=== PATIENT | female | born 1995 ===

== ENCOUNTER → 2020-08-09 12:13 | Outpatient (BNVA) | payer OTHER, SELFPAY | PROVIDERS: Visit Provider Obstetrics & Gynecology | DX: Z30.09 Encounter for other general counseling and advice on contraception (principal) | CPT/HCPCS: 99202 ==

== ENCOUNTER 2020-10-23 10:20 | Outpatient (REF) | payer OTHER, SELFPAY ==
[2020-10-24 00:52] LABS: CT PCR NOT DETECTED (Not Detect.); NG PCR NOT DETECTED (Not Detect.)
== END 2020-10-23 10:21 | disposition home or self-care (01) ==
LOC: HO.LAB 10:20
PROVIDERS: Visit Provider Advanced Practice Midwife
DX: Z30.430 Encounter for insertion of intrauterine contraceptive device (principal); Z20.2 Contact with and (suspected) exposure to infections with a predominantly sexual mode of transmission
CPT/HCPCS: 58300; 81025; 87491; 87591

== ENCOUNTER 2020-11-23 10:48 | Outpatient (REF) | payer OTHER, SELFPAY | END 2020-11-23 10:49 | disposition home or self-care (01) | LOC: HO.LAB 10:48 | PROVIDERS: Visit Provider Advanced Practice Midwife | DX: Z30.431 Encounter for routine checking of intrauterine contraceptive device (principal); R31.9 Hematuria, unspecified | CPT/HCPCS: 87086; 87147; 99212 ==

== ENCOUNTER 2021-01-31 13:27 | Outpatient (REF) | payer OTHER, SELFPAY ==
[2021-01-31 15:13] LABS: Hematocrit 41.3 % (37.0-47.0); Hemoglobin 14.2 g/dl (12.0-16.0); Mean Corpuscular HGB Conc 34.4 g/dl (31.0-35.0); Mean Corpuscular Hemoglobin 27.8 pg (27.0-33.0); Mean Corpuscular Volume 80.8 fL (80.0-98.0); Mean Platelet Volume 10.7 fL (9.4-12.3); Platelet Count 341 X10*3/uL (160-400); Red Blood Count 5.11 X10*6/uL (4.20-5.50); Red Cell Distribution Width 12.9 % (11.0-16.0); White Blood Count 9.7 X10*3/uL (4.8-10.8)
[2021-02-01 10:56] LABS: BV Int Neg Control Negative (Negative); BV Int Pos Control Positive (Positive)
== END 2021-01-31 13:28 | disposition home or self-care (01) ==
LOC: HO.LAB 13:27
PROVIDERS: Visit Provider Advanced Practice Midwife
DX: Z01.419 Encounter for gynecological examination (general) (routine) without abnormal findings (principal); N93.9 Abnormal uterine and vaginal bleeding, unspecified; N92.0 Excessive and frequent menstruation with regular cycle
CPT/HCPCS: 36415; 81025; 85027; 87480; 87510; 87660; 99212

== ENCOUNTER 2021-02-12 14:06 | Outpatient (REF) | payer OTHER, SELFPAY ==
--- NOTE | ~2021-02-12 | US_ITS ---
EXAMINATION: US PELVIS CLINICAL INFORMATION: Z30.431 - checking of IUD, bleeding with paraguard. Age 25. LMP 2 weeks ago. COMPARISON: None TECHNIQUE: Ultrasound of the pelvis is performed using both transabdominal and transvaginal transducers along with Doppler. Transvaginal imaging is performed due to inadequate visualization transabdominally. FINDINGS: Uterus: The uterus is anteverted and measures 8.2 x 3.7 x 5.8 cm. Volume 92 mL. The double wall endometrial thickness is 13 mm. The uterus is smooth in contour. There is an IUD in expected position. No visible fibroid. Adnexa: Both ovaries are visualized. There is incidental dominant follicle on left measuring 1.9 x 1.6 cm. There is no adnexal mass. There is normal color flow to the adnexa. No torsion. No ascites. Right ovary measures 3.2 x 1.5 x 1.5 cm. Left ovary measures 4.3 x 2.0 x 2.2 cm. US/US pelvic and transvaginal IMPRESSION: 1. IUD in position. Double wall endometrial thickness within normal, 1.3 cm. 2. Incidental left ovarian dominant follicle. No adnexal mass or pelvic ascites.
== END 2021-02-12 14:07 | disposition home or self-care (01) ==
LOC: HO.US 14:06
PROVIDERS: Visit Provider Advanced Practice Midwife
DX: Z30.431 Encounter for routine checking of intrauterine contraceptive device (principal); N92.0 Excessive and frequent menstruation with regular cycle
CPT/HCPCS: 76830; 76856

== ENCOUNTER → 2021-02-26 11:34 | Outpatient (BNVA) | payer OTHER, SELFPAY | PROVIDERS: Visit Provider Advanced Practice Midwife ==

== ENCOUNTER 2022-03-07 15:38 | Outpatient (REF) | payer OTHER, SELFPAY ==
[2022-03-07 18:42] LABS: CT PCR NOT DETECTED (Not Detect.); NG PCR NOT DETECTED (Not Detect.)
[2022-03-08 12:29] LABS: BV Int Neg Control Negative (Negative); BV Int Pos Control Positive (Positive)
== END 2022-03-07 15:39 | disposition home or self-care (01) ==
LOC: HO.LNP 15:38
PROVIDERS: Visit Provider Advanced Practice Midwife
DX: Z01.419 Encounter for gynecological examination (general) (routine) without abnormal findings (principal); Z11.3 Encounter for screening for infections with a predominantly sexual mode of transmission; R31.9 Hematuria, unspecified
CPT/HCPCS: 81003; 87086; 87480; 87491; 87510; 87591; 87660

== ENCOUNTER 2022-07-24 13:44 | Outpatient (REF) | payer OTHER, SELFPAY ==
[2022-07-25 02:54] LABS: CT PCR NOT DETECTED (Not Detect.); NG PCR NOT DETECTED (Not Detect.)
[2022-07-25 10:55] LABS: BV Int Neg Control Negative (Negative); BV Int Pos Control Positive (Positive)
== END 2022-07-24 13:45 | disposition home or self-care (01) ==
LOC: HO.LAB 13:44
PROVIDERS: Visit Provider Advanced Practice Midwife
DX: R10.2 Pelvic and perineal pain (principal); N92.6 Irregular menstruation, unspecified; Z20.2 Contact with and (suspected) exposure to infections with a predominantly sexual mode of transmission
CPT/HCPCS: 0353U; 81025; 87480; 87510; 87660; 99212

== ENCOUNTER 2022-07-24 14:05 | Outpatient (REF) | payer OTHER, SELFPAY | END 2022-07-24 14:06 | disposition home or self-care (01) | LOC: HO.LNP 14:05 | PROVIDERS: Visit Provider Advanced Practice Midwife | DX: Z13.89 Encounter for screening for other disorder (principal) ==

== ENCOUNTER 2023-04-25 10:24 | Outpatient (AMB) | payer OTHER, SELFPAY ==
--- NOTE | 2023-04-25 10:47 | MHC.OFFVIS ---
Intake Vital Signs 04/25/23 10:49 Height 5 ft 3 in Weight 171 lb 15.369 oz BMI 30.5 BP 116/64 Intake Visit Reasons: vag pressure/30 mins Associate Veterinarian Required: Yes Associate Veterinarian Language: Fur Blowing Machine Operator Name: Aishwarya COULTER Information Interpreted: non-clinical & clinical Manager Statistical Programming: Manager Statistical Programming Present (Aishwarya COULTER) Accompanied by: Self / Same As Patient Allergies No Known Allergies Allergy (Verified 04/25/23 10:50) Is last menstrual period known: Yes Last menstrual period: 04/02/23 HPI HPI Comments History of Present Illness Details Patient is here today with complaints of lower pelvic pain reports it is 10/10 on the pain scale. She was previously seen at [facility] last and then returned to the hospital because her pain was still persistent. Initially she was told she had a UTI kidney infection and then when she returned she was told she did not. She reports they did not exam did tell her whether her IUD was placement was correct. She reports a fever on Friday. She is already seen her primary care who advised her to be seen here. Records are not here from [facility] we will call during her visit see if we can get them sent over immediately. She reports a increase in her vaginal discharge with an odor. [facility] Surgical History History of placement of ear tubes Social History Alcohol intake: never Patient Tobacco Use Status: Never used Tobacco Gender identity: Female Female Reproductive History Menstrual Age of Menarche: 13 Date of last menstrual period: 04/02/23 Review of Systems Const All systems reviewed & are unremarkable except as noted in HPI and below Physical Exam Vital Signs: Last Vital Signs BP 116/64 04/25/23 10:49 BMI result Body Mass Index 30.5 Const General: cooperative, healthy appearing and no acute distress Orientation/consciousness: patient oriented x3 GI Inspection: Yes normal to inspection Palpation (GI): Soft to palpation and Other GI palpation findings present (Nontender) Rectal Exam - Female: visual inspection normal General: Yes bladder normal to palpation External Female Exam: normal appearance of the urethra Speculum Exam - Vagina: normal appearance of the vagina, normal palpation and abnormal vaginal discharge Speculum Exam - Cervix: normal appearance of the cervix, normal palpation, Abnormal cervical discharge present (Mucopurulent discharge) and Other cervical findings present (Normal IUD strings) Bimanual exam- vagina & uterus: normal bimanual exam, normal palpation, uterine size normal, bladder normal to palpation, normal palpation, uterine shape normal and Uterine tenderness Bimanual Exam- Adnexa, other: normal adnexae Neuro General: patient oriented x3 Office Meds ceftriaxone 500 mg solution for injection Performing Provider: Della Yu CNM Performing Location: [facility] Administered by: Marisol Gomez on 04/25/23 12:10 Dose Route Admin Location Dispensed Lot Number Expiration Date [facility] [place] Deployment Technician 500 mg IM RGM 500 mg [id number] 03/23/25 8740-1141-07 [employer] Results AMB Test Urine AMB Test Urine Negative Last Edit by Aishwarya Montenegro CMA on 04/25/23 11:23 AMB Urinalysis Dipstick UR Leukocytes Negative Last Edit by Aishwarya Montenegro CMA on 04/25/23 11:24 UR Nitrite Negative Last Edit by Aishwarya Montenegro CMA on 04/25/23 11:24 UR Urobilinogen Normal Last Edit by Aishwarya Montenegro CMA on 04/25/23 11:24 UR Protein Negative Last Edit by Aishwarya Montenegro CMA on 04/25/23 11:24 UR Ph 6.5 Last Edit by Aishwarya Montenegro CMA on 04/25/23 11:24 UR Blood Negative Last Edit by Aishwarya Montenegro CMA on 04/25/23 11:24 UR Specific Massey 1.025 Last Edit by Aishwarya Montenegro CMA on 04/25/23 11:24 UR Ketone Negative Last Edit by Aishwarya Montenegro CMA on 04/25/23 11:24 UR Bilirubin Negative Last Edit by Aishwarya Montenegro CMA on 04/25/23 11:24 UR Glucose Negative Last Edit by Aishwarya Montenegro CMA on 04/25/23 11:24 Results Reviewed Results Reviewed: Laboratory Last Values Urine pH (Clinic) 6.5 04/25/23 11:22 Specific Massey (Clinic) 1.025 04/25/23 11:22 Ur Protein (Clinic) Negative 04/25/23 11:22 Ur Ketones (Clinic) Negative 04/25/23 11:22 Urine Blood (Clinic) Negative 04/25/23 11:22 Urine Nitrite Negative 04/25/23 11:22 Urine Bilirubin (Clinic) Negative 04/25/23 11:22 Urobilinogen (Clinic) Normal 04/25/23 11:22 Leukocyte Esterase (Clinic) Negative 04/25/23 11:22 Urine Glucose (Clinic) Negative 04/25/23 11:22 Tst Clinic Negative 04/25/23 11:22 Assessment & Plan Assessment & Plan (1) Pelvic inflammatory disease (PID): Code(s): N73.9 - Female pelvic inflammatory disease, unspecified Plan Discussed: Ultrasound wet read call from radiology department: No abnormalities including abscess of the pelvis no noted, IUD in proper position, right ovarian simple cyst 3.3 cm Plan of care/treatment. Cultures obtained. Treatment protocol for Pelvic Inflammatory Disease (PID) per CC guidelines including; Ceftriaxone IM in office and additional oral meds: Doxycycline and Flagyl for two week. Or alternative if allergies. Med use, warning, no alcohol use or vinegar products advised for Flagyl reviewed. Advised to call if any worsening symptoms, increased pain, fever over 100.4, flu like symptoms, chills, lightheadedness, dizziness, report immediately to the ED. Medication instructions reviewed, take as directed and complete all medications. Flagyl med use and warnings provided. Pelvic Rest: nothing in the vagina, no intimacy. You may take OTC mild analgesic as directed for discomforts. Pelvic recheck appointment 2-3 days. All questions and concerns answered to the best of my ability. She is agreeable to the plan of care. This note is constructed using voice recognition software. While every effort has been made to ensure accuracy, election supervisor errors may have been included. Orders: Orders CT NG by PCR Today N73.9 - Female pelvic inflammatory disease, unspecified, R31.9 - Hematuria, unspecified AMB Urinalysis Dipstick Today R10.2 - Pelvic and perineal pain, Z32.02 - Encounter for test, result negative AMB Ceftriaxone Injection Today N73.9 - Female pelvic inflammatory disease, unspecified US pelvic and transvaginal Today N73.9 - Female pelvic inflammatory disease, unspecified, Z30.431 - Encounter for routine checking of intrauterine contraceptive device Bacterial Vaginosis Panel Today N73.9 - Female pelvic inflammatory disease, unspecified, R31.9 - Hematuria, unspecified AMB HCG Urine Test Today R10.2 - Pelvic and perineal pain, Z32.02 - Encounter for test, result negative Medications: New metronidazole 500 mg PO BID 28 tabs 0RF 14 days doxycycline hyclate 100 mg PO BID 28 caps 0RF 14 days Coding Level of Care Code Est Pt Level 4 (28712) Diagnoses Pelvic inflammatory disease (PID) N73.9
[2023-04-25 10:49] VITALS: BP 116/64; BMI 30.5
== END 2023-04-25 13:46 | disposition home or self-care (01) ==
LOC: HO.HWS 10:24
PROVIDERS: Visit Provider Advanced Practice Midwife
DX: R10.2 Pelvic and perineal pain (principal); N73.9 Female pelvic inflammatory disease, unspecified; Z32.02 Encounter for pregnancy test, result negative
CPT/HCPCS: 99214

== ENCOUNTER 2023-04-25 10:24 | Outpatient (REF) | payer OTHER, SELFPAY ==
[2023-04-26 05:57] LABS: CT PCR NOT DETECTED (Not Detect.); NG PCR NOT DETECTED (Not Detect.)
[2023-04-26 11:44] LABS: BV Int Neg Control Negative (Negative); BV Int Pos Control Positive (Positive)
== END 2023-04-25 10:25 | disposition home or self-care (01) ==
LOC: HO.LNP 10:24
PROVIDERS: Visit Provider Advanced Practice Midwife
DX: N73.9 Female pelvic inflammatory disease, unspecified (principal); R31.9 Hematuria, unspecified; N89.8 Other specified noninflammatory disorders of vagina; R10.2 Pelvic and perineal pain; Z32.02 Encounter for pregnancy test, result negative
CPT/HCPCS: 0353U; 81002; 81025; 87480; 87510; 87660; 96372; 99212; J0696

== ENCOUNTER 2023-04-25 12:19 | Outpatient (REF) | payer OTHER, SELFPAY ==
--- NOTE | ~2023-04-25 | US_ITS ---
EXAMINATION: US PELVIS COMPLETE TRANSVAGINAL PELVIC ULTRASOUND: CLINICAL INFORMATION: Pelvic inflammatory disease. COMPARISON: None TECHNIQUE: Transabdominal imaging initially performed. For more definitive evaluation of the endometrium and ovaries, transvaginal technique was employed. FINDINGS: Uterus is anteverted measuring 8.7 x 4.6 x 5.2cm. Endometrium contains IUD which appears to be in appropriate position. Small amount of fluid seen in the endocervical canal and nabothian cysts identified. Right ovary measures 4.1 4.1 x 3.4 cm for a volume of 29.4 mL. Previous measurement was 3.2 x 1.5 x 1.5 cm. 3.2 x 3.0 x 2.9 cm right ovarian cyst identified. The left ovary measures 3.7 x 1.5 x 1.7 cm for a volume of 5.0 mL. Previous measurement was 4.3 x 2.0 x 2.2 cm There is no pelvic free fluid. US/US pelvic and transvaginal IMPRESSION: IUD in appropriate position. 3.2 cm right ovarian cyst. Endocervical fluid and nabothian cysts.
== END 2023-04-25 12:20 | disposition home or self-care (01) ==
LOC: HO.US 12:19
PROVIDERS: Visit Provider Advanced Practice Midwife
DX: N73.9 Female pelvic inflammatory disease, unspecified (principal); Z30.431 Encounter for routine checking of intrauterine contraceptive device
CPT/HCPCS: 76830; 76856

== ENCOUNTER 2023-05-01 09:17 | Outpatient (AMB) | payer OTHER, SELFPAY ==
--- OUTSIDE RECORDS SUMMARY | 2023-05-01 09:19 | XMS_ITS | Continuity of Care Document ---
Author Name Unknown Organization [facility] Address [address] [place] [address]- Care Team Providers Care Crossing Tender Name Role Phone Manav Carrasco NP Primary Care Physician Encounter [facility] [id number] Date(s): 04/26/22 - 05/26/22 [facility]/[place] [address]- Attending Physician: Sushil Woodson Admitting Physician: AdmSushil werner Referring Physician: AdmtrSushil Allergies, Adverse Reactions, Alerts No Known Medication Allergies Immunizations Given and Recorded Vaccine Date Status Refusal Reason [id number] 12y+ bivalent booster vax 03/13/22 Given influenza virus vaccine, inactivated 03/13/22 Give n influenza virus vaccine, inactivated 04/14/15 Give n Human Papillomavirus Vaccine 09/28/10 Given Tet/Diphth/Acel, Pertussis (oldterm) 09/01/08 Give n Menactra (oldterm) 09/01/08 Given Gardasil (oldterm) 09/01/08 Given Medications venlafaxine 112.5 mg oral tablet, extended release 1 tablet = 112.5 mg, By Mouth, Daily, # 30 tablet, 1 Refills, Maintenance, 03/13/22 11:57:00 [id number], Partial fill upon patient request if the prescription is for a schedule II opioid drug., 159.5, cm, 03/13/22 11:10:00 EST, H... 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
--- OUTSIDE RECORDS SUMMARY | 2023-05-01 09:19 | XMS_ITS | Continuity of Care Document ---
Author Name Unknown Organization [facility] Address [address] [place] [address]- Care Team Providers Care Yarn Texture Machine Operator Name Role Phone Manav Carrasco NP Primary Care Physician [phone] Encounter [facility] Date(s): 01/07/23 - 02/06/23 [facility]/[place] [address]- Attending Physician: Not on Staff, Attending MD Allergies, Adverse Reactions, Alerts No Known Medication Allergies Immunizations Given and Recorded Vaccine Date Status Refusal Reason SARS-CoV-2(COVID-19)mRNA-LNP vac([id number]) 02/04/23 Given influenza virus vaccine, inactivated 02/04/23 Give n influenza virus vaccine, inactivated 03/13/22 Give n influenza virus vaccine, inactivated 01/26/20 Kranthi rded influenza virus vaccine, inactivated 04/14/15 Give n tetanus/diphtheria/pertussis, acel(Tdap) 09/17/22 Given tetanus/diphtheria/pertussis, acel(Tdap) 12/29/19 Recorded tetanus/diphtheria/pertussis, acel(Tdap) 01/02/17 Recorded [id number] 12y+ bivalent booster vax 03/13/22 Given SARS-CoV-2 (COVID-19) mRNA BNT-162b2 vac 07/27/20 Recorded SARS-CoV-2 (COVID-19) mRNA BNT-162b2 vac 07/06/20 Recorded Human Papillomavirus Vaccine 05/17/15 Recorded Human Papillomavirus Vaccine 09/28/10 Given Tet/Diphth/Acel, Pertussis (oldterm) 09/01/08 Give n Menactra (oldterm) 09/01/08 Given Gardasil (oldterm) 09/01/08 Given Medications amitriptyline 25 mg oral tablet 25 mg, 1, tablet, By Mouth, Daily at bedtime, # 90 tablet, Refills 1, Tot. Refills 1, Maintenance, 09/17/22 15:50:00 EDT, Route to Pharmacy Electronically, [facility]/pharmacy #[id number], Partial fill upon patient request if the prescription is for a schedule II... Start Date: 09/17/22 Status: Ordered ciprofloxacin-dexamethasone 0.3%-0.1% otic suspension See Instructions, 4 drops in affected ear(s), 2 times a day 7 days; shake well before using; wash hands before applying, # 7.5 mL, 0 Refills, Acute 02/11/23 16:32:00 EST, 02/04/23 16:31:00 EST, [facility]/pharmacy #[id number], Partial fill upon patient request i... Start Date: 02/04/23 Stop Date: 02/11/23 Status: Ordered fluocinolone 0.01% topical cream 1 application, Topically, 3 times a day, FOR RASH ON HAND AND ARMS., # 60 Gm, 0 Refills, Maintenance, 07/12/22 14:49:00 EDT, Cream, [facility]/pharmacy #[id number], Partial fill upon patient request if the prescription is for a schedule II opioid drug., 1 applicat... Start Date: 07/12/22 Status: Ordered omeprazole 20 mg oral enteric coated capsule 1 capsule = 20 mg, By Mouth, 2 times a day, # 28 capsule, 0 Refills, Maintenance, 01/15/23 12:11:00EDT, [facility]/pharmacy #[id number], *please do not request 90 day supply as this is only for 14 day H. pylori treatmetn*; Partial fill upon patient request if the... Start Date: 01/15/23 Stop Date: 01/29/23 Status: Ordered Ventolin HFA 108 mcg/inh inhalation aerosol with adapter 1 puffs, Inhalation, 4 times a day, PRN for wheezing, # 8 Gm, 0 Refills, Maintenance, 12/17/22 16:44:00 EDT, Aerosol, [facility]/pharmacy #[id number], Partial fill upon patient request if the prescription is for a schedule II opioid drug., 159.5, cm, 12/17/22 16:2... 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
--- OUTSIDE RECORDS SUMMARY | 2023-05-01 09:19 | XMS_ITS | Continuity of Care Document ---
Author Name Unknown Organization [facility] Address [address] [place] [address]- Care Team Providers Care Beater Operator Name Role Phone Luna VILLALPANDO, Manav Primary Care Physician [phone] Encounter [facility] Date(s): 06/05/22 - 09/06/22 [facility] [address]- Attending Physician: Not on Staff, Attending MD Allergies, Adverse Reactions, Alerts No Known Medication Allergies Immunizations Given and Recorded Vaccine Date Status Refusal Reason [id number] 12y+ bivalent booster vax 03/13/22 Given influenza virus vaccine, inactivated 03/13/22 Give n influenza virus vaccine, inactivated 04/14/15 Give n Human Papillomavirus Vaccine 09/28/10 Given Tet/Diphth/Acel, Pertussis (oldterm) 09/01/08 Give n Menactra (oldterm) 09/01/08 Given Gardasil (oldterm) 09/01/08 Given Medications amitriptyline 10 mg oral tablet 10 mg, 1, tablet, By Mouth, Daily at bedtime, # 30 tablet, Refills 3, Tot. Refills 3, Maintenance, 08/07/22 9:41:00 EDT, Route to Pharmacy Electronically, [facility]/pharmacy #[id number], Partial fill upon patient request if the prescription is for a schedule II o... Start Date: 08/07/22 Status: Ordered fluocinolone 0.01% topical cream 1 application, Topically, 3 times a day, FOR RASH ON HAND AND ARMS., # 60 Gm, 0 Refills, Maintenance, 07/12/22 14:49:00 EDT, Cream, [facility]/pharmacy #[id number], Partial fill upon patient request if the prescription is for a schedule II opioid drug., 1 applicat... Start Date: 07/12/22 Status: Ordered Problem List Condition Confirmation Course Effective Dates Status Health St atus Informant Anxiety Confirmed Active Chronic headache Confirmed Active [...] Associate Professional Member Role: PCP Address: Address: [address] [place] [address]- Care Team Related Persons Name: HAYDER RAY Address: home [address] [place] [id number] Name: [place] [place] Name: ROGELIO MARRUFO Address: [address] [address]
--- OUTSIDE RECORDS SUMMARY | 2023-05-01 09:19 | XMS_ITS | Continuity of Care Document ---
Author Name Unknown Organization [facility] Address [address] [place] [address]- Care Team Providers Care Arboriculturist Name Role Phone Luna VILLALPANDO, Manav Primary Care Physician Encounter [facility] Date(s): 07/12/22 - 08/11/22 [facility]/[place] [address]- [place] Allergies, Adverse Reactions, Alerts No Known Medication Allergies Immunizations Given and Recorded Vaccine Date Status Refusal Reason [id number] 12y+ bivalent booster vax 03/13/22 Given influenza [...] 08/07/22 9:41:00 EDT, [facility] to Pharmacy Electronically, [facility] 1 applicat... Start Date: 07/12/22 Status: Ordered naproxen 500 mg oral tablet 1 tablet = 500 mg, By Mouth, 2 times a day, PRN as needed for pain, for 30 days, # 60 tablet, 0 Refills, Acute 09/06/22 9:41:00 EDT, 08/07/22 9:41:00 EDT, Tablet, [facility]/pharmacy #[id number], Partial fill upon patient request if the prescription is for a sched... Start Date: 08/07/22 Stop Date: 09/06/22 Status: Ordered Tylenol 8 Hour 650 mg oral tablet, extended release 2 tablet = 1,300 mg, By Mouth, Every 8 hours, PRN as needed for pain, for 30 days, # 50 tablet, 0 Refills, Acute 09/06/22 9:41:00 EDT, 08/07/22 9:41:00 EDT, ER Tablet, [facility]/pharmacy #[id number], Partial fill upon patient request if the prescription is for a... Start Date: 08/07/22 Stop Date: 09/06/22 Status: Ordered Problem List Condition Confirmation Course [...] Team Personnel Name: Manav Carrasco NP Position: [facility] PCO Associate Professional Member Role: PCP Address: Address: [address] [place] [address]- Care Team Related Persons Name: HAYDER RAY Address: home [address] [place] [id number] Name: [place] Name: ROGELIO MARRUFO Address: home [address] [place] [id number]
--- OUTSIDE RECORDS SUMMARY | 2023-05-01 09:19 | XMS_ITS | Continuity of Care Document ---
Author Name Unknown Organization [facility] Address [address] [place] [address]- Care Team Providers Care Fuel Cell Builder Name Role Phone Manav Carrasco NP Primary Care Physician [phone] Encounter [facility] Date(s): 11/11/22 - 12/11/22 [facility] [address]- [place] Allergies, Adverse Reactions, Alerts No Known Medication Allergies Immunizations Given and Recorded Vaccine Date Status Refusal Reason tetanus/diphtheria/pertussis, acel(Tdap) 09/17/22 Given [id number] 12y+ bivalent booster vax 03/13/22 Given influenza [...] 09/17/22 15:50:00 EDT, Route to Pharmacy Electronically, [facility]/pharmacy #[id number], Partial fill upon patient request if the prescription is for a schedule II... Start Date: 09/17/22 Status: Ordered fluocinolone 0.01% topical cream 1 application, Topically, 3 times a day, FOR RASH ON HAND AND ARMS., # 60 Gm, 0 Refills, Maintenance, 07/12/22 14:49:00 EDT, Cream, [facility]/pharmacy #[id number], Partial fill upon patient request if the prescription is for a schedule II opioid drug., 1 applicat... Start Date: 07/12/22 Status: Ordered omeprazole 20 mg oral delayed release tablet 1 tablet = 20 mg, By Mouth, 2 times a day, # 28 tablet, 0 Refills, Maintenance, 11/04/22 9:07:00 EDT, EC Tablet, [facility]/pharmacy #[id number], please do not ask for 90 day supply. Omeprazole is ONLY for 14 days for H. pylori treatment; Partial fill upon pat... Start Date: 11/04/22 Stop Date: 11/18/22 Status: Ordered Problem List Condition Confirmation Course [...] Associate Professional Member Role: PCP Address: Address: [address] [place] [address]- Care Team Related Persons Name: HAYDER RAY Address: home [address] [place] [id number] Name: [place] [place] Name: ROGELIO MARRUFO Address: [address] [address]
--- OUTSIDE RECORDS SUMMARY | 2023-05-01 09:20 | XMS_ITS | Continuity of Care Document ---
Author Name Unknown Organization [facility] Address [address] [place] [address]- Care Team Providers Care Cardiac Care Nurse Name Role Phone Manav Carrasco NP Primary Care Physician [phone] Encounter [facility] Date(s): 01/15/23 - 02/14/23 [facility]/[place] [address]- [place] Allergies, Adverse Reactions, Alerts No Known Medication Allergies Immunizations Given and Recorded Vaccine Date Status Refusal Reason SARS-CoV-2(COVID-19)mRNA-LNP vac([id number]) 02/04/23 Given influenza virus vaccine, inactivated 02/04/23 Give n influenza virus vaccine, inactivated 03/13/22 Give n influenza virus vaccine, inactivated 01/26/20 Kranthi rded influenza virus vaccine, inactivated 04/14/15 Give n tetanus/diphtheria/pertussis, acel(Tdap) 09/17/22 Given tetanus/diphtheria/pertussis, acel(Tdap) 12/29/19 Recorded tetanus/diphtheria/pertussis, acel(Tdap) 01/02/17 Recorded [id number] 12y+ bivalent booster vax 03/13/22 Given SARS-CoV-2 [...] 09/17/22 15:50:00 EDT, Route to Pharmacy Electronically, [facility]/pharmacy #[id number], Partial fill upon patient request if the prescription is for a schedule II... Start Date: 09/17/22 Status: Ordered fluocinolone 0.01% topical cream 1 application, Topically, 3 times a day, FOR RASH ON HAND AND ARMS., # 60 Gm, 0 Refills, Maintenance, 07/12/22 14:49:00 EDT, Cream, [facility]/pharmacy #[id number], Partial fill upon patient request if the prescription is for a schedule II opioid drug., 1 applicat... Start Date: 07/12/22 Status: Ordered omeprazole 20 mg oral enteric coated capsule 1 capsule = 20 mg, By Mouth, 2 times a day, # 28 capsule, 0 Refills, Maintenance, 01/15/23 12:11:00EDT, [facility]/pharmacy #[id number], *please do not request 90 day supply as this is only for 14 day H. pylori treatmetn*; Partial fill upon patient request if the... Start Date: 01/15/23 Stop Date: 01/29/23 Status: Ordered Ventolin HFA 108 mcg/inh inhalation aerosol with adapter 1 puffs, Inhalation, 4 times a day, PRN for wheezing, # 8 Gm, 0 Refills, Maintenance, 12/17/22 16:44:00 EDT, Aerosol, [facility]/pharmacy #[id number], Partial fill upon patient request if [...] Associate Professional Member Role: PCP Address: Address: [address] [place] [address] Care Team Related Persons Name: HAYDER RAY Address: home [address] [place] [address] Name: [place] [place] Name: ROGELIO MARRUFO Address: [address] [address]
--- OUTSIDE RECORDS SUMMARY | 2023-05-01 09:20 | XMS_ITS | Continuity of Care Document ---
Author Name Unknown Organization [facility] Address [address] [place] [address]- Care Team Providers Care General Magistrate Name Role Phone Luna VILLALPANDO, Manav Primary Care Physician [phone] [id number] Date[facility]13[facility] - 05/26/22 [facility]/[place] [address]- Attending Physician: Manav Carrasco NP Admitting Physician: Manav Carrasco NP Allergies, Adverse Reactions, Alerts No Known Medication Allergies Immunizations Given and Recorded Vaccine Date Status Refusal Reason [id number] 12y+ bivalent booster vax 03/13/22 Given influenza virus vaccine, inactivated 03/13/22 Give n influenza virus vaccine, inactivated 04/14/15 Give n Human Papillomavirus Vaccine 09/28/10 Given Tet/Diphth/Acel, Pertussis (oldterm) 09/01/08 Give n Menactra (oldterm) 09/01/08 Given Gardasil (oldterm) 09/01/08 Given Medications venlafaxine 112.5 mg oral tablet, extended release 1 tablet = 112.5 mg, By Mouth, Daily, # 30 tablet, 1 Refills, Maintenance, 03/13/22 11:57:00 [facility] #[id number], Partial fill upon patient request if the [...] Response Smoking Status Never smoker entered on: 1/22/16 Sex Patient Care team information Care Team Personnel Name: Manav Crarasco NP Position: [facility] PCO Associate Professional Member Role: PCP Address: Address: [address] [place] [address]- Care Team Related Persons Name: HAYDER RAY Address: home [address] [place] [address] Name: [place] [place] Name: ROGELIO MARRUFO Address: home [address] [place] [address]
--- OUTSIDE RECORDS SUMMARY | 2023-05-01 09:20 | XMS_ITS | Continuity of Care Document ---
Author Name Unknown Organization [facility] Address [address] [place] [address]- Care Team Providers Care Automatic Thread Winder Name Role Phone Manav Carrasco NP Primary Care Physician [phone] Encounter [facility] Date(s): 04/19/22 - 05/19/22 [facility]/[place] [address]- [place] Allergies, Adverse Reactions, Alerts No Known Medication Allergies Immunizations Given and Recorded Vaccine Date Status Refusal Reason [id number] 12y+ bivalent booster vax 03/13/22 Given influenza virus vaccine, inactivated 03/13/22 Give n influenza virus vaccine, inactivated 04/14/15 Give n Human Papillomavirus Vaccine 09/28/10 Given Tet/Diphth/Acel, Pertussis (oldterm) 09/01/08 Give n Menactra (oldterm) 09/01/08 Given Gardasil (oldterm) 09/01/08 Given Medications venlafaxine 112.5 mg oral tablet, extended release 1 tablet = 112.5 mg, By Mouth, Daily, # 30 tablet, 1 Refills, Maintenance, 03/13/22 11:57:00 [facility][id number], Partial fill upon patient request if the [...] Team Personnel Name: Manav Carrasco NP Position: [facility] PCO Associate Professional Member Role: PCP Address: Address: [address] [place] [address]- Care Team Related Persons Name: HAYDER RAY Address: home [address] [place] [address] Name: [facility] [place] Name: ROGELIO MARRUFO Address: home [address] [place] [address]
--- OUTSIDE RECORDS SUMMARY | 2023-05-01 09:20 | XMS_ITS | Continuity of Care Document ---
Author Name Unknown Organization [facility] Address [address] [place] [address]- Care Team Providers Care Medical Records Analyst Name Role Phone Luna VILLALPANDO, Manav Primary Care Physician [place] [facility] [place] [facility] [place] [id number] Date(s): 02/25/23 - 04/05/[address] [address]- Attending Physician: Manav Carrasco NP Admitting Physician: Manav Carrasco NP Referring Physician: Manav Carrasco NP Allergies, Adverse Reactions, Alerts No Known Medication Allergies Immunizations Given and Recorded Vaccine Date Status Refusal Reason SARS-CoV-2(COVID-19)mRNA-LNP vac([id number]) 02/04/23 Given influenza virus vaccine, inactivated 02/04/23 Give n influenza virus vaccine, inactivated 03/13/22 Give n influenza virus vaccine, inactivated 01/26/20 Kranthi rded influenza virus vaccine, inactivated 04/14/15 Give n tetanus/diphtheria/pertussis, acel(Tdap) 09/17/22 Given tetanus/diphtheria/pertussis, acel(Tdap) 12/29/19 Recorded tetanus/diphtheria/pertussis, acel(Tdap) 01/02/17 Recorded [id number] 12y+ bivalent booster vax 03/13/22 Given SARS-CoV-2 [...] 09/17/22 15:50:00 EDT, Route to Pharmacy Electronically, [facility]/pharmacy #[id number], Partial fill upon patient request if the prescription is for a schedule II... Start Date: 09/17/22 Status: Ordered fluocinolone 0.01% topical cream 1 application, Topically, 3 times a day, FOR RASH ON HAND AND ARMS., # 60 Gm, 0 Refills, Maintenance, 07/12/22 14:49:00 EDT, Cream, [facility]/pharmacy #[id number], Partial fill upon patient request if the prescription is for a schedule II opioid drug., 1 applicat... Start Date: 07/12/22 Status: Ordered omeprazole 20 mg oral enteric coated capsule 1 capsule = 20 mg, By Mouth, 2 times a day, # 28 capsule, 0 Refills, Maintenance, 01/15/23 12:11:00EDT, [facility]/pharmacy #[id number], *please do not request 90 day supply as this is only for 14 day H. pylori treatmetn*; Partial fill upon patient request if the... Start Date: 01/15/23 Stop Date: 01/29/23 Status: Ordered Ventolin HFA 108 mcg/inh inhalation aerosol with adapter 1 puffs, Inhalation, 4 times a day, PRN for wheezing, # 8 Gm, 0 Refills, Maintenance, 12/17/22 16:44:00 EDT, Aerosol, [facility]/pharmacy #[id number], Partial fill upon [...] Associate Professional Member Role: PCP Address: Address: [address] [place] [address]- Care Team Related Persons Name: HAYDER RAY Address: home [address] [place] [address] Name: [facility] [place] Name: ROGELIO MARRUFO Address: [address] [address]
--- OUTSIDE RECORDS SUMMARY | 2023-05-01 09:20 | XMS_ITS | Continuity of Care Document ---
Author Name Unknown Organization [facility] Address [address] [place] [address]- Care Team Providers Care Global Technical Writer Name Role Phone Manav Carrasco NP Primary Care Physician Encounter [facility] Date(s): 01/30/23 - 03/05/23 [facility] [address]- Attending Physician: Not on Staff, Attending MD Allergies, Adverse Reactions, Alerts No Known Medication Allergies Immunizations Given and Recorded Vaccine Date Status Refusal Reason SARS-CoV-2(COVID-19)mRNA-LNP vac([id number]) 02/04/23 Given influenza virus vaccine, inactivated 02/04/23 Give n influenza virus vaccine, inactivated 03/13/22 Give n influenza virus vaccine, inactivated 01/26/20 Kranthi rded influenza virus vaccine, inactivated 04/14/15 Give n tetanus/diphtheria/pertussis, acel(Tdap) 09/17/22 Given tetanus/diphtheria/pertussis, acel(Tdap) 12/29/19 Recorded tetanus/diphtheria/pertussis, acel(Tdap) 01/02/17 Recorded [id number] 12y+ bivalent booster vax 03/13/22 Given SARS-CoV-2 [...] 09/17/22 15:50:00 EDT, Route to Pharmacy Electronically, [facility]/pharmacy #[id number], Partial fill upon patient request if the prescription is for a schedule II... Start Date: 09/17/22 Status: Ordered fluocinolone 0.01% topical cream 1 application, Topically, 3 times a day, FOR RASH ON HAND AND ARMS., # 60 Gm, 0 Refills, Maintenance, 07/12/22 14:49:00 EDT, Cream, [facility]/pharmacy #[id number], Partial fill upon patient request if the prescription is for a schedule II opioid drug., 1 applicat... Start Date: 07/12/22 Status: Ordered omeprazole 20 mg oral enteric coated capsule 1 capsule = 20 mg, By Mouth, 2 times a day, # 28 capsule, 0 Refills, Maintenance, 01/15/23 12:11:00EDT, [facility]/pharmacy #[id number], *please do not request 90 day supply as this is only for 14 day H. pylori treatmetn*; Partial fill upon patient request if the... Start Date: 01/15/23 Stop Date: 01/29/23 Status: Ordered Ventolin HFA 108 mcg/inh inhalation aerosol with adapter 1 puffs, Inhalation, 4 times a day, PRN for wheezing, # 8 Gm, 0 Refills, Maintenance, 12/17/22 16:44:00 EDT, Aerosol, [facility]/pharmacy #[id number], Partial fill upon patient request if [...] Associate Professional Member Role: PCP Address: Address: [address] [place] [address] Care Team Related Persons Name: HAYDER RAY Address: home [address] [place] [address] Name: [facility] [place] Name: ROGELIO MARRUFO Address: [address] [address]
--- OUTSIDE RECORDS SUMMARY | 2023-05-01 09:20 | XMS_ITS | Continuity of Care Document ---
Author Name Unknown Organization [facility] Address [address] [place] [address]- Care Team Providers Care Telegraph Equipment Maintainer Name Role Phone Manav Carrasco NP Primary Care Physician [phone] Encounter [facility] [place] Date(s): 03/06/23 - 04/05/[address] [address]- Attending Physician: Sushil Woodson Admitting Physician: Sushil Woodson Referring Physician: AdmtrSushil Allergies, Adverse Reactions, Alerts No Known Medication Allergies Immunizations Given and Recorded Vaccine Date Status Refusal Reason SARS-CoV-2(COVID-19)mRNA-LNP vac([id number]) 02/04/23 Given influenza virus vaccine, inactivated 02/04/23 Give n influenza virus vaccine, inactivated 03/13/22 Give n influenza virus vaccine, inactivated 01/26/20 Kranthi rded influenza virus vaccine, inactivated 04/14/15 Give n tetanus/diphtheria/pertussis, acel(Tdap) 09/17/22 Given tetanus/diphtheria/pertussis, acel(Tdap) 12/29/19 Recorded tetanus/diphtheria/pertussis, acel(Tdap) 01/02/17 Recorded [id number] 12y+ bivalent booster vax 03/13/22 Given SARS-CoV-2 [...] 15:50:00 EDT, Route to Pharmacy Electronically, [facility]/pharmacy #[id number], Partial fill upon patient request if the prescription is for a schedule II... Start Date: 09/17/22 Status: Ordered fluocinolone 0.01% topical cream 1 application, Topically, 3 times a day, FOR RASH ON HAND AND ARMS., # 60 Gm, 0 Refills, Maintenance, 07/12/22 14:49:00 EDT, Cream, [facility]/pharmacy #[id number], Partial fill upon patient request if the prescription is for a schedule II opioid drug., 1 applicat... Start Date: 07/12/22 Status: Ordered omeprazole 20 mg oral enteric coated capsule 1 capsule = 20 mg, By Mouth, 2 times a day, # 28 capsule, 0 Refills, Maintenance, 01/15/23 12:11:00EDT, [facility]/pharmacy #[id number], *please do not request 90 day supply as this is only for 14 day H. pylori treatmetn*; Partial fill upon patient request if the... Start Date: 01/15/23 Stop Date: 01/29/23 Status: Ordered Ventolin HFA 108 mcg/inh inhalation aerosol with adapter 1 puffs, Inhalation, 4 times a day, PRN for wheezing, # 8 Gm, 0 Refills, Maintenance, 12/17/22 16:44:00 EDT, Aerosol, [facility]/pharmacy #[id number], Partial fill upon patient request if [...] Associate Professional Member Role: PCP Address: Address: [address] [place] [address]- Care Team Related Persons Name: HAYDER RAY Address: home [address] [place] [address] Name: [facility] [place] Name: ROGELIO MARRUFO Address: home [address] [place] [address]
--- OUTSIDE RECORDS SUMMARY | 2023-05-01 09:20 | XMS_ITS | Continuity of Care Document ---
Author Name Unknown Organization [facility] Address [address] [place] [address]- Care Team Providers Care Ham Passer Name Role Phone Manav Carrasco NP Primary Care Physician En[place] [facility] [place] Date(s): 01/06/23 - 02/05/23 [facility]/[place] [address]- [place] Allergies, Adverse Reactions, Alerts No Known Medication Allergies Immunizations Given and Recorded Vaccine Date Status Refusal Reason SARS-CoV-2(COVID-19)mRNA-LNP vac([id number]) 02/04/23 Given influenza virus vaccine, inactivated 02/04/23 Give n influenza virus vaccine, inactivated 03/13/22 Give n influenza virus vaccine, inactivated 01/26/20 Kranthi rded influenza virus vaccine, inactivated 04/14/15 Give n tetanus/diphtheria/pertussis, acel(Tdap) 09/17/22 Given tetanus/diphtheria/pertussis, acel(Tdap) 12/29/19 Recorded tetanus/diphtheria/pertussis, acel(Tdap) 01/02/17 Recorded [id number] 12y+ bivalent booster vax 03/13/22 Given SARS-CoV-2 [...] 09/17/22 15:50:00 EDT, Route to Pharmacy Electronically, [facility]/pharmacy #[id number], Partial fill upon patient request if the prescription is for a schedule II... Start Date: 09/17/22 Status: Ordered ciprofloxacin-dexamethasone 0.3%-0.1% otic suspension See Instructions, 4 drops in affected ear(s), 2 times a day 7 days; shake well before using; wash hands before applying, # 7.5 mL, 0 Refills, Acute 02/11/23 16:32:00 EST, 02/04/23 16:31:00 EST, [facility] #[id number], Partial fill upon patient request i... Start Date: 02/04/23 Stop Date: 02/11/23 Status: Ordered fluocinolone 0.01% topical cream 1 application, Topically, 3 times a day, FOR RASH ON HAND AND ARMS., # 60 Gm, 0 Refills, Maintenance, 07/12/22 14:49:00 EDT, Cream, [facility]/pharmacy #[id number], Partial fill upon patient request if the prescription is for a schedule II opioid drug., 1 applicat... Start Date: 07/12/22 Status: Ordered omeprazole 20 mg oral enteric coated capsule 1 capsule = 20 mg, By Mouth, 2 times a day, # 28 capsule, 0 Refills, Maintenance, 01/15/23 12:11:00EDT, [facility]/pharmacy #[id number], *please do not request 90 day supply as this is only for 14 day H. pylori treatmetn*; Partial fill upon patient request if the... Start Date: 01/15/23 Stop Date: 01/29/23 Status: Ordered Ventolin HFA 108 mcg/inh inhalation aerosol with adapter 1 puffs, Inhalation, 4 times a day, PRN for wheezing, # 8 Gm, 0 Refills, Maintenance, 12/17/22 16:44:00 EDT, Aerosol, [facility]/pharmacy #[id number], Partial fill upon patient request if [...] Associate Professional Member Role: PCP Address: Address: [address] [place] [address]- Care Team Related Persons Name: HAYDER RAY Address: home [address] [place] [address] Name: [facility] [place] Name: ROGELIO MARRUFO Address: [address] [address]
--- OUTSIDE RECORDS SUMMARY | 2023-05-01 09:20 | XMS_ITS | Continuity of Care Document ---
Author Name Unknown Organization [facility] Address [address] [place] [address]- Care Team Providers Care Brine Tank Tender Name Role Phone Manav Carrasco NP Primary Care Physician [phone] Encounter [facility] Date(s): 12/19/22 - 01/18/[address] [address] Attending Physician: Sushil Woodson Admitting Physician: AdmtrSushil Referring Physician: Admtr, Ar8 Allergies, Adverse Reactions, Alerts No Known Medication Allergies Immunizations Given and Recorded Vaccine Date Status Refusal Reason tetanus/diphtheria/pertussis, acel(Tdap) 09/17/22 Given [id number] 12y+ bivalent booster vax 03/13/22 Given influenza [...] 09/17/22 15:50:00 EDT, Route to Pharmacy Electronically, [facility]/pharmacy #[id number], Partial fill upon patient request if the prescription is for a schedule II... Start Date: 09/17/22 Status: Ordered amoxicillin 500 mg oral capsule 2 capsule = 1,000 mg, By Mouth, 3 times a day, for 14 days, # 84 capsule, 0 Refills, Acute :01:00 EST, 01/15/23 9:01:00 EDT, [id number], Partial fill upon patient request if the prescription is for a schedule II opioid drug., 159.5,... Start Date: 01/15/23 Stop Date: 01/29/23 Status: Ordered fluocinolone 0.01% topical cream 1 [...] 28 capsule, 0 Refills, Maintenance, 01/15/23 12:11:00EDT, [id number], *please do not request 90 day supply as this is only for 14 day H. pylori treatmetn*; Partial fill upon patient request if the... Start Date: 01/15/23 Stop Date: 01/29/23 Status: Ordered Ventolin HFA 108 mcg/inh inhalation aerosol with adapter 1 puffs, Inhalation, 4 times a day, PRN for wheezing, # 8 Gm, 0 Refills, Maintenance, 12/17/22 16:44:00 EDT, Aerosol, [id number], Partial fill upon patient request [...] Associate Professional Member Role: PCP Address: Address: [address] [place] [address] Care Team Related Persons Name: HAYDER RAY Address: [address] [address] Name: [facility] [place] Name: ROGELIO MARRUFO Address: [place] [address]
--- OUTSIDE RECORDS SUMMARY | 2023-05-01 09:20 | XMS_ITS | Continuity of Care Document ---
Author Name Unknown Organization [facility] Address [address] [place] [address]- Care Team Providers Care Middle [employer] Special Education Teacher Name Role Phone Luna VILLALPANDO, Manav Primary Care Physician [phone] [id number] Date(s): 11/04/22 - 01/09/23 [facility]/[place] [address]- Attending Physician: Manav Carrasco NP Admitting Physician: Manav Carrasco NP Allergies, Adverse Reactions, Alerts No Known Medication Allergies Immunizations Given and Recorded Vaccine Date Status Refusal Reason tetanus/diphtheria/pertussis, acel(Tdap) 09/17/22 Given [id number] 12y+ bivalent booster vax 03/13/22 Given influenza [...] 09/17/22 15:50:00 EDT, Route to Pharmacy Electronically, [id number], Partial fill upon patient request [...] Refills, Maintenance, 11/04/22 9:07:00 EDT, EC Tablet, [facility]/pharmacy #[id number], please do not ask for 90 day supply. Omeprazole is ONLY for 14 days for H. pylori treatment; Partial fill upon pat... Start Date: 11/04/22 Stop Date: 11/18/22 Status: Ordered Tylenol 325 mg oral capsule 1 capsule = 325 mg, By Mouth, Every 4 hours, PRN as needed for pain, for 30 days, # 90 capsule, 0 Refills, Acute 01/16/23 16:44:00 EDT, 12/17/22 16:44:00 EDT, Capsule, [facility]/pharmacy #[id number], Partial fill upon patient request if the prescription is for a... Start Date: 12/17/22 Stop Date: 01/16/23 Status: Ordered Ventolin HFA 108 mcg/inh inhalation aerosol with adapter 1 puffs, Inhalation, 4 times a day, PRN for wheezing, # 8 Gm, 0 Refills, Maintenance, 12/17/22 16:44:00 EDT, Aerosol, [facility]/pharmacy #[id number], Partial fill upon patient request [...] Care team information Care Team Personnel Name: Mnaav Carrasco NP Position: S PCO Associate Professional Member Role: PCP Address: Address: [address] [place] [address]- Care Team Related Persons Name: HAYDER RAY Address: home [address] [place] [address] Name: [facility] [place] Name: ROGELIO MARRUFO Address: home [address] [place] [address]
--- OUTSIDE RECORDS SUMMARY | 2023-05-01 09:20 | XMS_ITS | Continuity of Care Document ---
Author Name Unknown Organization [facility] Address [address] [place] [address]- Care Team Providers Care Python Django Developer Name Role Phone Manav Carrasco NP Primary Care Physician [place] [facility] [place] 11/04/22 - 12/04/22 [facility]/[place] [address]- [place] Allergies, Adverse Reactions, Alerts No Known Medication Allergies Immunizations Given and Recorded Vaccine Date Status Refusal Reason tetanus/diphtheria/pertussis, acel(Tdap) 09/17/22 Given [id number] 12y+ bivalent booster vax 03/13/22 Given influenza [...] 09/17/22 15:50:00 EDT, Route to Pharmacy Electronically, [facility]/pharmacy #[id number], Partial fill upon patient request if the prescription is for a schedule II... Start Date: 09/17/22 Status: Ordered fluocinolone 0.01% topical cream 1 application, Topically, 3 times a day, FOR RASH ON HAND AND ARMS., # 60 Gm, 0 Refills, Maintenance, 07/12/22 14:49:00 EDT, Cream, [facility]/pharmacy #[id number], Partial fill upon patient request if the prescription is for a schedule II opioid drug., 1 applicat... Start Date: 07/12/22 Status: Ordered omeprazole 20 mg oral delayed release tablet 1 tablet = 20 mg, By Mouth, 2 times a day, # 28 tablet, 0 Refills, Maintenance, 11/04/22 9:07:00 EDT, EC Tablet, [facility]/pharmacy #[id number], please do not ask for 90 day [...] Professional Member Role: PCP Address: Address: [address] [place] [address]- Care Team Related Persons Name: HAYDER RAY Address: home [address] [place] [address] Name: [facility] [place] Name: ROGELIO MARRUFO Address: [address] [address]
--- OUTSIDE RECORDS SUMMARY | 2023-05-01 09:20 | XMS_ITS | Continuity of Care Document ---
Author Name Unknown Organization [facility] Address [address] [place] [address]- Care Team Providers Care Galley Boy Name Role Phone Manav Carrasco NP Primary Care Physician Encounter [facility] Date(s): 05/28/22 - 06/27/22 [facility] [address]- [place] Allergies, Adverse Reactions, Alerts No Known Medication Allergies Immunizations Given and Recorded Vaccine Date Status Refusal Reason [id number] 12y+ bivalent booster vax 03/13/22 Given influenza virus vaccine, inactivated 03/13/22 Give n influenza virus vaccine, inactivated 04/14/15 Give n Human Papillomavirus Vaccine 09/28/10 Given Tet/Diphth/Acel, Pertussis (oldterm) 09/01/08 Give n Menactra (oldterm) 09/01/08 Given Gardasil (oldterm) 09/01/08 Given Medications venlafaxine 75 mg oral capsule, extended release 1 capsule = 75 mg, By Mouth, Daily, # 30 capsule, 1 Refills, Maintenance, 06/03/22 9:35:00 EDT, ER Capsule, [id number], Partial fill upon patient request if the prescription is for a scheduleII opioid drug., 159.5, cm, 03/13/22 11:10:00 EST,... Start Date: 06/03/22 Status: Ordered Problem List Condition Confirmation Course [...] Associate Professional Member Role: PCP Address: Address: [address] [place] [address]- Care Team Related Persons Name: HAYDER RAY Address: home [address] [place] [id number] Name: CONCEPCION [place] Name: ROGELIO MARRUFO Address: home [address] [place] [id number]
--- OUTSIDE RECORDS SUMMARY | 2023-05-01 09:20 | XMS_ITS | Continuity of Care Document ---
Author Name Unknown Organization [facility] Address [address] [place] [address]- Care Team Providers Care Undraped Artist Model Name Role Phone Manav Carrasco NP Primary Care Physician [phone] Encounter [facility] Date(s): 11/06/22 - 12/06/22 [facility]/[place] [address]- [place] Allergies, Adverse Reactions, Alerts No Known Medication Allergies Immunizations Given and Recorded Vaccine Date Status Refusal Reason tetanus/diphtheria/pertussis, acel(Tdap) 09/17/22 Given [id number] 12y+ bivalent booster vax 03/13/22 Given influenza [...] 09/17/22 15:50:00 EDT, Route to Pharmacy Electronically, [facility]pharm[facility] #[id number], Partial fill upon patient request if the prescription is for a schedule II... Start Date: 09/17/22 Status: Ordered fluocinolone 0.01% topical cream 1 application, Topically, 3 times a day, FOR RASH ON HAND AND ARMS., # 60 Gm, 0 Refills, Maintenance, 07/12/22 14:49:00 EDT, Cream, [facility]pharm[facility] #[id number], Partial fill upon patient request if the prescription is for a schedule II opioid drug., 1 applicat... Start Date: 07/12/22 Status: Ordered omeprazole 20 mg oral delayed release tablet 1 tablet = 20 mg, By Mouth, 2 times a day, # 28 tablet, 0 Refills, Maintenance, 11/04/22 9:07:00 EDT, EC Tablet, [facility]/pharmacy #[id number], please do not ask for 90 day [...] Associate Professional Member Role: PCP Address: Address: [address] [place] [address]- Care Team Related Persons Name: HAYDER RAY Address: home [address] [place] [id number] Name: CONCE[place]ION [place] Name: ROGELIO MARRUFO Address: [address] [address]
--- OUTSIDE RECORDS SUMMARY | 2023-05-01 09:20 | XMS_ITS | Continuity of Care Document ---
Author Name Unknown Organization [facility] Address [address] [place] [address]- Care Team Providers Care Specialty Development Consultant Name Role Phone Luna VILLALPANDO, Manav Primary Care Physician Encounter [facility] Date(s): 12/10/22 - 01/18/[address] [address] Attending Physician: Manav Carrasco NP Admitting Physician: Manav Carrasco NP Referring Physician: Manav Carrasco NP Allergies, Adverse Reactions, Alerts No Known Medication Allergies Immunizations Given and Recorded Vaccine Date Status Refusal Reason tetanus/diphtheria/pertussis, acel(Tdap) 09/17/22 Given [id number] 12y+ bivalent booster vax 03/13/22 Given influenza [...] 09/17/22 15:50:00 EDT, Route to Pharmacy Electronically, [facility]/pharmacy #[id number], Partial fill upon patient request if the [...] Associate Professional Member Role: PCP Address: Address: [address] [place] [address] Care Team Related Persons Name: HAYDER RAY Address: [address] [address] Name: CONCE[place]ION [place] Name: ROGELIO MARRUFO Address: [place] [address]
--- NOTE | 2023-05-01 09:21 | A.OFFVIS_ITS ---
Intake Vital Signs 05/01/23 09:22 Height 5 ft 3 in Weight 171 lb BMI 30.3 BP 110/70 Intake Visit Reasons: pelvic re check/30 mins Intake Note: patient declined marketing rotation associate for today's visit Paralegal Legal Secretary Required: No Information Interpreted: non-clinical & clinical Advertising Account Executive: Advertising Account Executive Present (Kristen) Accompanied by: Spouse Allergies No Known Allergies Allergy (Verified 05/01/23 09:22) HPI HPI Comments History of Present Illness Details Patient is here today for short-term follow-up for after diagnosis of PID last week. Presents today with her partner and daughter. She has been treating herself with oral medications and reports overall feeling much better. [facility] Surgical History History of placement of ear tubes Social History Alcohol intake: never Patient Tobacco Use Status: Never used Tobacco Gender identity: Female Female Reproductive History Menstrual Age of Menarche: 13 Review of Systems Const All systems reviewed & are unremarkable except as noted in HPI and below Physical Exam Vital Signs: Last Vital Signs BP 110/70 05/01/23 09:22 BMI result Body Mass Index 30.3 Const General: cooperative, healthy appearing and no acute distress Orientation/consciousness: patient oriented x3 GI Inspection: Yes normal to inspection and Yes other (Slightly tender to the lower left superficially over the muscle) Palpation (GI): Soft to palpation and Other GI palpation findings present (Nontender) Rectal Exam - Female: visual inspection normal General: Yes bladder normal to palpation External Female Exam: normal appearance of the urethra Speculum Exam - Vagina: normal appearance of the vagina, normal palpation and normal vaginal discharge Speculum Exam - Cervix: normal appearance of the cervix, normal palpation and Other cervical findings present (IUD strings present) Bimanual exam- vagina & uterus: normal bimanual exam, normal palpation, uterine size normal, bladder normal to palpation, normal palpation, uterine shape normal and non-tender Bimanual Exam- Adnexa, other: normal adnexae Neuro General: patient oriented x3 Results Reviewed Results Reviewed: [address] [address] Ultrasound Report Signed Patient: Vivi Almendarez MR#: [id number] : 1995 Acct:[id number] Age/Sex: 27 / F ADM Date: 04/25/23 Loc: HO.US Attending Dr: Della Yu CNM Ordering Physician: Della Yu CNM Date of Service: 04/25/23 Procedure(s): US pelvic and transvaginal Accession Number(s): [id number] cc: Della Yu CNM~ EXAMINATION: US PELVIS COMPLETE TRANSVAGINAL PELVIC ULTRASOUND: CLINICAL INFORMATION: Pelvic inflammatory disease. COMPARISON: None TECHNIQUE: Transabdominal imaging initially performed. For more definitive evaluation of the endometrium and ovaries, transvaginal technique was employed. FINDINGS: Uterus is anteverted measuring 8.7 x 4.6 x 5.2cm. Endometrium contains IUD which appears to be in appropriate position. Small amount of fluid seen in the endocervical canal and nabothian cysts identified. Right ovary measures 4.1 4.1 x 3.4 cm for a volume of 29.4 mL. Previous measurement was 3.2 x 1.5 x 1.5 cm. 3.2 x 3.0 x 2.9 cm right ovarian cyst identified. The left ovary measures 3.7 x 1.5 x 1.7 cm for a volume of 5.0 mL. Previous measurement was 4.3 x 2.0 x 2.2 cm There is no pelvic free fluid. US/US pelvic and transvaginal IMPRESSION: IUD in appropriate position. 3.2 cm right ovarian cyst. Endocervical fluid and nabothian cysts. Dictated By: Cristine Márquez MD Signed By: <Electronically signed by Cristine Márquez MD in OV> 04/25/23 1514 DD/ 1305 TD/TT: Pack Worker Supervisor: Assessment & Plan Assessment & Plan (1) Encounter to discuss test results: Code(s): Z71.2 - Person consulting for explanation of examination or test findings (2) Pelvic inflammatory disease (PID): Code(s): N73.9 - Female pelvic inflammatory disease, unspecified (3) Ovarian cyst: Code(s): N83.209 - Unspecified ovarian cyst, unspecified side Qualifiers: Laterality: right Qualified Code(s): N83.201 - Unspecified ovarian cyst, right side Plan Discuss: Ultrasound findings, IUD in proper position, right 3.2 cm simple cyst-benign cyst of the size do not require follow-up and most resolve on their own. If any pelvic pain or increased pain at all on the right side to notify the office immediately for further evaluation. Recommended completing all medication even if she is feeling well. Schedule a 1 week follow-up for pelvic recheck. Annual exam in 1 month. All of her questions and concerns were addressed to the best of my ability and shared decision making. She is agreeable to the plan of care. Coding Level of Care Code Est Pt Level 3 (78555) Diagnoses Encounter to discuss test results Z71.2 Pelvic inflammatory disease (PID) N73.9 Cyst of right ovary N83.201 Laterality: right
[2023-05-01 09:22] VITALS: BP 110/70; BMI 30.3
== END 2023-05-01 09:56 | disposition home or self-care (01) ==
LOC: HO.HWS 09:18
PROVIDERS: Visit Provider Advanced Practice Midwife
DX: Z71.2 Person consulting for explanation of examination or test findings (principal); N73.9 Female pelvic inflammatory disease, unspecified; N83.201 Unspecified ovarian cyst, right side
CPT/HCPCS: 99213

== ENCOUNTER → 2023-05-01 09:17 | Outpatient (BNVA) | payer OTHER, SELFPAY | PROVIDERS: Visit Provider Advanced Practice Midwife | DX: Z71.2 Person consulting for explanation of examination or test findings (principal); N73.9 Female pelvic inflammatory disease, unspecified; N83.201 Unspecified ovarian cyst, right side | CPT/HCPCS: 99212 ==

== ENCOUNTER 2023-05-08 10:30 | Outpatient (AMB) | payer OTHER, SELFPAY ==
--- NOTE | 2023-05-08 10:42 | MHC.OFFVIS ---
Intake Vital Signs 05/08/23 10:45 Height 5 ft 3 in Weight 171 lb BMI 30.3 BP 102/60 Intake Visit Reasons: Pelvic recheck Intake Note: pt c/o vaginal infection from antibiotics patient not comfortable with getting undressed due to being on period. Patient told doing an exam would be the only way to know what to treat her for. Reimbursement Auditor: Reimbursement Auditor Present (Kristen) Allergies No Known Allergies Allergy (Verified 05/08/23 10:43) Is last menstrual period known: Yes Last menstrual period: 05/05/23 HPI HPI Comments History of Present Illness Details And is here today for a pelvic rechecked due to the diagnosis of PID. She reports stopping her antibiotics. She reports some UTI symptoms last week urine dip was negative. She feels better but somewhat not sure if it is completely clear. She does report vaginal itching and feels like she has a yeast infection. She does have her menstrual cycle today is not really super comfortable with being examined but is agreeing to not have to come back and reschedule her appointment today. [facility] Surgical History History of placement of ear tubes Social History Alcohol intake: never Patient Tobacco Use Status: Never used Tobacco Gender identity: Female Female Reproductive History Menstrual Age of Menarche: 13 Date of last menstrual period: 05/05/23 Review of Systems Const All systems reviewed & are unremarkable except as noted in HPI and below Physical Exam Vital Signs: Last Vital Signs BP 102/60 05/08/23 10:45 BMI result Body Mass Index 30.3 Const General: cooperative, healthy appearing and no acute distress Orientation/consciousness: patient oriented x3 GI Inspection: Yes normal to inspection Palpation (GI): Soft to palpation and Other GI palpation findings present (Nontender) Rectal Exam - Female: visual inspection normal General: Yes bladder normal to palpation External Female Exam: normal appearance of the urethra Speculum Exam - Vagina: normal appearance of the vagina, normal palpation, normal vaginal discharge and vaginal bleeding Speculum Exam - Cervix: normal appearance of the cervix and normal palpation Bimanual exam- vagina & uterus: normal bimanual exam, normal palpation, uterine size normal, bladder normal to palpation, normal palpation, uterine shape normal and non-tender Bimanual Exam- Adnexa, other: normal adnexae and Other (Tender to the right side) OB/external & speculum: vaginal bleeding Neuro General: patient oriented x3 Office Meds ceftriaxone 500 mg solution for injection Performing Provider: Della Yu CNM Performing Location: [facility] [place] [facility] Administered by: Yady Mora LPN on 05/08/23 13:45 Dose Route Admin Location Dispensed Lot Number Expiration Date [facility] Bioinformatics Associate 500 mg IM left gluteus 500 mg [id number] 03/22/25 [id number] [employer]OSP[employer]ER Results AMB Urinalysis, Automated UA Leukoctes 0 Alvarez/uL Last Edit by MARYLIN Cain on 05/08/23 11:09 UA Nitrite Negative Last Edit by MARYLIN Cain on 05/08/23 11:09 UA Urobilinogen 0 mg/dL Last Edit by MARYLIN Cain on 05/08/23 11:09 UA Protein 0 mg/dL Last Edit by MARYLIN Cain on 05/08/23 11:09 UA pH 6.0 Last Edit by MARYLIN Cain on 05/08/23 11:09 UA Blood 3 Frankie/uL Last Edit by MARYLIN Cain on 05/08/23 11:09 UA Specific Branch 1.015 Last Edit by MARYLIN Cain on 05/08/23 11:09 UA Ketone Negative Last Edit by MARYLIN Cain on 05/08/23 11:09 UA Bilirubin 0 mg/dL Last Edit by MARYLIN Cain on 05/08/23 11:09 UA Glucose 0 mg/dL Last Edit by MARYLIN Cain on 05/08/23 11:09 AMB Test Urine AMB Test Urine Negative Last Edit by MARYLIN Cain on 05/08/23 11:34 Results Reviewed Results Reviewed: Laboratory Last Values Urine pH (Auto) 6.0 05/08/23 11:08 Specific Branch (Auto) 1.015 05/08/23 11:08 Urine Protein (Auto) 0 mg/dL 05/08/23 11:08 Glucose (UA)(Auto) 0 mg/dL 05/08/23 11:08 Urine Ketones (Auto) Negative 05/08/23 11:08 Urine Blood (Auto) 3 Frankie/uL 05/08/23 11:08 Urine Nitrite (Auto) Negative 05/08/23 11:08 Urine Bilirubin (Auto) 0 mg/dL 05/08/23 11:08 Urine Urobilinogen (Auto) 0 mg/dL 05/08/23 11:08 Leukocyte Esterase (Auto) 0 Alvarez/uL 05/08/23 11:08 [facility] Negative 05/08/23 11:[address] [address] Ultrasound Report Signed Patient: Vivi Almendarez MR#: [id number] : 1995 Acct:[id number] Age/Sex: 27 / F ADM Date: 05/08/23 Loc: HO.US Attending Dr: Della Yu CNM Ordering Physician: Della Yu CNM Date of Service: 05/08/23 Procedure(s): US pelvic and transvaginal Accession Number(s): [id number] cc: Della Yu CNM~ EXAMINATION: US PELVIS CLINICAL INFORMATION: Pelvic inflammatory disease. LMP 3 days ago. COMPARISON: 04/25/2023 TECHNIQUE: Ultrasound of the pelvis is performed using both transabdominal and transvaginal transducers along with Doppler. Transvaginal imaging is performed due to inadequate visualization transabdominally. FINDINGS: Uterus: The uterus is anteverted. The uterus measures 8.9 x 4.0 x 4.8 cm. Uterine echotexture is heterogeneous. The endometrial stripe measures 0.4 cm in thickness. An intrauterine device is in satisfactory position within the endometrium. Few cervical nabothian cysts are present. Adnexa: Right ovary measures 3.4 x 2.5 x 2.6 cm. Involuting corpus luteum. Left ovary is not seen. No significant free fluid in the pelvis. US/US pelvic and transvaginal IMPRESSION: Satisfactory position of IUD. Dictated By: Dorcas Kwong MD Signed By: <Electronically signed by Dorcas Kwong MD in OV> 02/15/24 1307 DD/ 1225 TD/TT: Assistant Grocery Store Manager: Assessment & Plan Assessment & Plan (1) Pelvic inflammatory disease (PID): Code(s): N73.9 - Female pelvic inflammatory disease, unspecified (2) Vaginal itching: Code(s): N89.8 - Other specified noninflammatory disorders of vagina (3) Dysuria: Code(s): R30.0 - Dysuria Plan Discussed: Ultrasound-no evidence of pelvic abscess. Plan of care/treatment. Cultures obtained. Treatment protocol for Pelvic Inflammatory Disease (PID) per CC guidelines including; Ceftriaxone IM in office and additional oral meds: Doxycycline and Flagyl for two week. Or alternative if allergies. Advised to call if any worsening symptoms, increased pain, fever over 100.4, flu like symptoms, chills, lightheadedness, dizziness, report immediately to the ED. Medication instructions reviewed, take as directed and complete all medications. Flagyl med use and warnings provided. Additional Zofran ordered and reviewed with patient. Pelvic Rest: nothing in the vagina, no intimacy. You may take OTC mild analgesic as directed for discomforts. Pelvic recheck appointment 2-3 days. Stressed importance of completing all medication and to call the office if there are any side effects or symptoms due to medication that interferes with her ability to take it the office if any concerns with medications. All questions and concerns answered to the best of my ability. She is agreeable to the plan of care. This note is constructed using voice recognition software. While every effort has been made to ensure accuracy, ocean freight agent errors may have been included. Orders: Orders AMB Urinalysis Automated Today R30.0 - Dysuria US pelvic and transvaginal Today N73.9 - Female pelvic inflammatory disease, unspecified, Z30.431 - Encounter for routine checking of intrauterine contraceptive device AMB Ceftriaxone Injection Today N73.9 - Female pelvic inflammatory disease, unspecified Bacterial Vaginosis Panel Today N89.8 - Other specified noninflammatory disorders of vagina AMB HCG Urine Test Today Z32.02 - Encounter for test, result negative Medications: New metronidazole 500 mg PO BID 28 tabs 0RF 14 days ondansetron HCl take one dose a half hour before medication 4 mg PO TID-QID PRN 28 tabs 0RF nausea and vomiting 14 days Refilled doxycycline hyclate 100 mg PO BID 28 caps 0RF 14 days Coding Level of Care Code Est Pt Level 4 (88199) Diagnoses Pelvic inflammatory disease (PID) N73.9 Vaginal itching N89.8 Dysuria R30.0
[2023-05-08 10:45] VITALS: BP 102/60; BMI 30.3
== END 2023-05-08 13:38 | disposition home or self-care (01) ==
PROVIDERS: Visit Provider Advanced Practice Midwife
DX: N73.9 Female pelvic inflammatory disease, unspecified (principal); N89.8 Other specified noninflammatory disorders of vagina; R30.0 Dysuria; Z32.02 Encounter for pregnancy test, result negative
CPT/HCPCS: 99214

== ENCOUNTER 2023-05-08 10:30 | Outpatient (REF) | payer OTHER, SELFPAY ==
[2023-05-09 09:53] LABS: BV Int Neg Control Negative (Negative); BV Int Pos Control Positive (Positive)
== END 2023-05-08 10:31 | disposition home or self-care (01) ==
LOC: HO.LAB 10:30
PROVIDERS: Visit Provider Advanced Practice Midwife
DX: N89.8 Other specified noninflammatory disorders of vagina (principal); N73.9 Female pelvic inflammatory disease, unspecified; R30.0 Dysuria; Z79.899 Other long term (current) drug therapy
CPT/HCPCS: 81003; 81025; 87480; 87510; 87660; 96372; 99212; J0696

== ENCOUNTER 2023-05-08 11:43 | Outpatient (REF) | payer OTHER, SELFPAY ==
--- NOTE | ~2023-05-08 | US_ITS ---
EXAMINATION: US PELVIS CLINICAL INFORMATION: Pelvic inflammatory disease. LMP 3 days ago. COMPARISON: 04/25/2023 TECHNIQUE: Ultrasound of the pelvis is performed using both transabdominal and transvaginal transducers along with Doppler. Transvaginal imaging is performed due to inadequate visualization transabdominally. FINDINGS: Uterus: The uterus is anteverted. The uterus measures 8.9 x 4.0 x 4.8 cm. Uterine echotexture is heterogeneous. The endometrial stripe measures 0.4 cm in thickness. An intrauterine device is in satisfactory position within the endometrium. Few cervical nabothian cysts are present. Adnexa: Right ovary measures 3.4 x 2.5 x 2.6 cm. Involuting corpus luteum. Left ovary is not seen. No significant free fluid in the pelvis. US/US pelvic and transvaginal IMPRESSION: Satisfactory position of IUD.
== END 2023-05-08 11:44 | disposition home or self-care (01) ==
LOC: HO.US 11:43
PROVIDERS: Visit Provider Advanced Practice Midwife
DX: Z30.431 Encounter for routine checking of intrauterine contraceptive device (principal); N73.4 Female chronic pelvic peritonitis
CPT/HCPCS: 76830; 76856

== ENCOUNTER 2023-05-22 10:38 | Outpatient (AMB) | payer OTHER, SELFPAY ==
[2023-05-22 10:40] VITALS: BP 110/70; BMI 30.3
--- NOTE | 2023-05-22 10:40 | MHC.OFFVIS ---
Intake Vital Signs 05/22/23 10:40 Height 5 ft 3 in Weight 171 lb BMI 30.3 BP 110/70 Intake Visit Reasons: PID follow up Supervisor Metalizing: Supervisor Metalizing Present (Kristen) Allergies No Known Allergies Allergy (Verified 05/22/23 10:40) Is last menstrual period known: Yes Last menstrual period: 05/05/23 HPI HPI Comments History of Present Illness Details Patient is here today for a recheck on her symptoms, currently taking antibiotics for the treatment of PID and reports some frequency of urination and some discomfort to the left pelvis and to the low back region. She reports chills no fever. She reports finishing her antibiotics today with no missed pills. She reports her last menstrual period was 05/08/2023. She notes increased discharge but is asymptomatic for itching or irritation. She reports hydrating well. [facility] Surgical History History of placement of ear tubes Social History Alcohol intake: never Patient Tobacco Use Status: Never used Tobacco Gender identity: Female Female Reproductive History Menstrual Age of Menarche: 13 Date of last menstrual period: 05/05/23 Review of Systems Const All systems reviewed & are unremarkable except as noted in HPI and below Physical Exam Vital Signs: Last Vital Signs BP 110/70 05/22/23 10:40 BMI result Body Mass Index 30.3 Const General: cooperative, healthy appearing and no acute distress Orientation/consciousness: patient oriented x3 GI Inspection: Yes normal to inspection Palpation (GI): Soft to palpation and Other GI palpation findings present (Nontender) Rectal Exam - Female: visual inspection normal General: Yes bladder normal to palpation External Female Exam: normal appearance of the urethra Speculum Exam - Vagina: normal appearance of the vagina, normal palpation and normal vaginal discharge Speculum Exam - Cervix: normal appearance of the cervix and normal palpation Bimanual exam- vagina & uterus: normal bimanual exam, normal palpation, uterine size normal, bladder normal to palpation, normal palpation, uterine shape normal and non-tender Bimanual Exam- Adnexa, other: normal adnexae and Other (She reports slight tenderness during exam) Neuro General: patient oriented x3 Results AMB Urinalysis, Automated UA Leukoctes 0.5 Alvarez/uL Last Edit by MARYLIN Cain on 05/22/23 10:51 UA Nitrite Negative Last Edit by Jeanette Hu [facility] on 05/22/23 10:51 UA Urobilinogen 0 mg/dL Last Edit by Jeanette Hu [facility] on 05/22/23 10:51 UA Protein 0 mg/dL Last Edit by Jeanette Hu [facility] on 05/22/23 10:51 UA pH 6.0 Last Edit by Jeanette Hu [facility] on 05/22/23 10:51 UA Blood 0.5 Frankie/uL Last Edit by Jeanette Hu [facility] on 05/22/23 10:51 UA Specific [place] 1.020 Last Edit by Jeanette Hu [facility] on 05/22/23 10:51 UA Ketone Negative Last Edit by Jeanette Hu [facility] on 05/22/23 10:51 UA Bilirubin 0 mg/dL Last Edit by Jeanette Hu [facility] on 05/22/23 10:51 UA Glucose 0 mg/dL Last Edit by Jeanette Hu [facility] on 05/22/23 10:51 Results Reviewed Results Reviewed: Laboratory Last Values Urine pH (Auto) 6.0 05/22/23 10:49 Specific [place] (Auto) 1.020 05/22/23 10:49 Urine Protein (Auto) 0 mg/dL 05/22/23 10:49 Glucose (UA)(Auto) 0 mg/dL 05/22/23 10:49 Urine Ketones (Auto) Negative 05/22/23 10:49 Urine Blood (Auto) 0.5 Frankie/uL 05/22/23 10:49 Urine Nitrite (Auto) Negative 05/22/23 10:49 Urine Bilirubin (Auto) 0 mg/dL 05/22/23 10:49 Urine Urobilinogen (Auto) 0 mg/dL 05/22/23 10:49 Leukocyte Esterase (Auto) 0.5 Alvarez/uL 05/22/23 10:49 Assessment & Plan Assessment & Plan (1) Pelvic inflammatory disease (PID): Code(s): N73.9 - Female pelvic inflammatory disease, unspecified (2) Frequency of urination: Code(s): R35.0 - Frequency of micturition Plan Advised to monitor her temperature at home, to take her temperature if she feels the chills. Continue to hydrate well. Pelvic rest. Complete all antibiotics. Keep follow-up appointment 05/27/2023 as planned. Discussed common causes for pelvic discomfort, may include Mittelschmerz, GI, urinary. She admits to being anxious about her symptoms and wanted to be seen sooner just to make sure everything was okay. Urine sample to be sent for processing. And report any unusual symptoms beforehand. All of her questions and concerns were addressed to the best of my ability and shared decision making. She is agreeable to the plan of care. This note is constructed using voice recognition software. While every effort has been made to ensure accuracy, tailercpa errors may have been included. Orders: Orders AMB Urinalysis Automated Today R10.2 - Pelvic and perineal pain Urine Culture Today R10.2 - Pelvic and perineal pain Coding Level of Care Code Est Pt Level 3 (27106) Diagnoses Pelvic inflammatory disease (PID) N73.9 Frequency of urination R35.0
== END 2023-05-22 14:33 | disposition home or self-care (01) ==
LOC: HO.HWS 10:39
PROVIDERS: Visit Provider Advanced Practice Midwife
DX: N73.9 Female pelvic inflammatory disease, unspecified (principal); R35.0 Frequency of micturition; R10.2 Pelvic and perineal pain
CPT/HCPCS: 99213

== ENCOUNTER 2023-05-22 10:38 | Outpatient (REF) | payer OTHER, SELFPAY | END 2023-05-22 10:39 | disposition home or self-care (01) | LOC: HO.LAB 10:38 | PROVIDERS: Visit Provider Advanced Practice Midwife | DX: N73.9 Female pelvic inflammatory disease, unspecified (principal); R10.2 Pelvic and perineal pain; R35.0 Frequency of micturition; N89.8 Other specified noninflammatory disorders of vagina; Z79.2 Long term (current) use of antibiotics | CPT/HCPCS: 81003; 87086; 99212 ==

== ENCOUNTER 2023-05-27 13:13 | Outpatient (AMB) | payer OTHER, SELFPAY ==
--- NOTE | 2023-05-27 13:18 | MHC.OFFVIS ---
Intake Vital Signs 05/27/23 13:25 Height 5 ft 3 in Weight 171 lb BMI 30.3 BP 108/66 Intake Visit Reasons: pelvic re check/clean catch Day Care Director: Day Care Director Present (Kristen) Allergies No Known Allergies Allergy (Verified 05/27/23 13:18) HPI HPI Comments History of Present Illness Details Patient is here for a recheck pelvic, history of PID. She completed all her meds. She reports feeling well with no other concerns or complaints. [facility] Surgical History History of placement of ear tubes Social History Alcohol intake: never Patient Tobacco Use Status: Never used Tobacco Gender identity: Female Female Reproductive History Menstrual Age of Menarche: 13 Review of Systems Const All systems reviewed & are unremarkable except as noted in HPI and below Physical Exam Vital Signs: Last Vital Signs BP 108/66 05/27/23 13:25 BMI result Body Mass Index 30.3 Const General: cooperative, healthy appearing and no acute distress Orientation/consciousness: patient oriented x3 GI Inspection: Yes normal to inspection Palpation (GI): Soft to palpation and Other GI palpation findings present (Nontender) Rectal Exam - Female: visual inspection normal General: Yes bladder normal to palpation External Female Exam: normal appearance of the urethra Speculum Exam - Vagina: normal appearance of the vagina, normal palpation and normal vaginal discharge Speculum Exam - Cervix: normal appearance of the cervix, normal palpation and Other cervical findings present (IUD strings present) Bimanual exam- vagina & uterus: normal bimanual exam, normal palpation, uterine size normal, bladder normal to palpation, normal palpation, uterine shape normal and non-tender Bimanual Exam- Adnexa, other: normal adnexae Neuro General: patient oriented x3 Results AMB Urinalysis, Automated UA Leukoctes 0 Alvarez/uL Last Edit by MARYLIN Cain on 05/27/23 13:25 UA Nitrite Negative Last Edit by MARYLIN Cain on 05/27/23 13:25 UA Urobilinogen 0 mg/dL Last Edit by MARYLIN Cain on 05/27/23 13:25 UA Protein 0 mg/dL Last Edit by MARYLIN Cain on 05/27/23 13:25 UA pH 6.0 Last Edit by Jeanette Richar Lowedorindasierra A on 05/27/23 13:25 UA Blood 0 Frankie/uL Last Edit by Jeanette Garciasierra A on 05/27/23 13:25 UA Specific [place] 1.015 Last Edit by Jeanette Hu A on 05/27/23 13:25 UA Ketone Negative Last Edit by Jenaette Richar Lowedorindasierra A on 05/27/23 13:25 UA Bilirubin 0 mg/dL Last Edit by Jeanette Richar Josesierra A on 05/27/23 13:25 UA Glucose 0 mg/dL Last Edit by Jeanettejorge luis Hu A on 05/27/23 13:25 Results Reviewed Results Reviewed: Laboratory Last Values Urine pH (Auto) 6.0 05/27/23 13:23 Specific [place] (Auto) 1.015 05/27/23 13:23 Urine Protein (Auto) 0 mg/dL 05/27/23 13:23 Glucose (UA)(Auto) 0 mg/dL 05/27/23 13:23 Urine Ketones (Auto) Negative 05/27/23 13:23 Urine Blood (Auto) 0 Frankie/uL 05/27/23 13:23 Urine Nitrite (Auto) Negative 05/27/23 13:23 Urine Bilirubin (Auto) 0 mg/dL 05/27/23 13:23 Urine Urobilinogen (Auto) 0 mg/dL 05/27/23 13:23 Leukocyte Esterase (Auto) 0 Alvarez/uL 05/27/23 13:23 Assessment & Plan Assessment & Plan (1) PID (pelvic inflammatory disease) contact, treated: Code(s): Z20.2 - Contact with and (suspected) exposure to infections with a predominantly sexual mode of transmission Plan Normal pelvic exam today. Patient has an annual exam booked for next month. No further questions or concerns. All of her questions and concerns were addressed to the best of my ability. This note is constructed using voice recognition software. While every effort has been made to ensure accuracy, bean snipper errors may have been included. Orders: Orders AMB Urinalysis Automated Today R10.2 - Pelvic and perineal pain Coding Level of Care Code Est Pt Level 3 (25556) Diagnoses PID (pelvic inflammatory disease) contact, treated Z20.2
[2023-05-27 13:25] VITALS: BP 108/66; BMI 30.3
== END 2023-05-27 13:42 | disposition home or self-care (01) ==
LOC: HO.HWS 13:13
PROVIDERS: Visit Provider Advanced Practice Midwife
DX: Z20.2 Contact with and (suspected) exposure to infections with a predominantly sexual mode of transmission (principal); R10.2 Pelvic and perineal pain
CPT/HCPCS: 99213

== ENCOUNTER → 2023-05-27 13:13 | Outpatient (BNVA) | payer OTHER, SELFPAY | PROVIDERS: Visit Provider Advanced Practice Midwife | DX: Z20.2 Contact with and (suspected) exposure to infections with a predominantly sexual mode of transmission (principal) | CPT/HCPCS: 81003; 99212 ==

== ENCOUNTER 2023-11-21 07:52 | Outpatient (AMB) | payer OTHER, SELFPAY ==
[2023-11-21 07:54] VITALS: BP 118/70; BMI 30.8
--- NOTE | 2023-11-21 07:54 | MHC.OFFVIS ---
Vital Signs 11/21/23 07:54 Height 5 ft 3 in Weight 174 lb BMI 30.8 BP 118/70 Intake Visit Reasons: pelvic pain Intake Note: c/o of pelvic pain x 2 mo. Cath Lab Radiological Technologist Required: Yes Cath Lab Radiological Technologist Language: Straightedge Man Services: Cath Lab Radiological Technologist Present (in person) Cath Lab Radiological Technologist Name: Aishwarya COULTER Information Interpreted: non-clinical & clinical Derrick Boat Operator: Derrick Boat Operator Present (Aishwarya COULTER) Accompanied by: Self / Same As Patient Allergies No Known Allergies Allergy (Verified 11/21/23 07:58) Is last menstrual period known: Yes Last menstrual period: 10/28/23 HPI Comments Details: Patient is here today with concerns of pelvic pain for the last 2 months similar to when she had PID in May w/pain on the left side. Hx. of IUD in place. Has same monogamous partner for over 10 years. [facility] Medical History (Updated 11/21/23 @ 09:14 by Della Yu CNM) Pelvic inflammatory disease (PID) Surgical History History of placement of ear tubes Social History Alcohol intake: never Patient Tobacco Use Status: Never used Tobacco Gender identity: Female Female Reproductive History Menstrual Age of Menarche: 13 Date of last menstrual period: 10/28/23 Review of Systems Const All systems reviewed & are unremarkable except as noted in HPI and below Physical Exam Vital Signs: Last Vital Signs BP 118/70 11/21/23 07:54 BMI result Body Mass Index 30.8 Const General: cooperative, healthy appearing and no acute distress Orientation/consciousness: patient oriented x3 GI Inspection: Yes normal to inspection Palpation (GI): Soft to palpation and Other GI palpation findings present (Nontender) Rectal Exam - Female: visual inspection normal General: Yes bladder normal to palpation External Female Exam: normal appearance of the urethra Speculum Exam - Vagina: normal appearance of the vagina, normal palpation and abnormal vaginal discharge (Abundant white clumpy discharge) Speculum Exam - Cervix: normal appearance of the cervix and Cervical tenderness present Bimanual exam- vagina & uterus: normal bimanual exam, normal palpation, uterine size normal, bladder normal to palpation, uterine shape normal, Cervical tenderness present, non-tender and other (IUD strings at the os) Bimanual Exam- Adnexa, other: normal adnexae and tender on the left Neuro General: patient oriented x3 Office Meds ceftriaxone 500 mg solution for injection Performing Provider: Della Yu CNM [place] [facility] [place] Administered by: Marisol Gomez on 11/21/23 08:56 Dose Route Admin Location Dispensed Lot Number Expiration Date [facility] Signal Inspector 500 mg IM RGM 500 mg [id number] 03/23/25 3688-3544-94 [employer]ER Results AMB Test Urine AMB Test Urine Negative Last Edit by MARYLIN Cain on 11/21/23 08:04 AMB Urinalysis, Automated UA Leukoctes 2 Alvarez/uL Last Edit by MARYLIN Cain on 11/21/23 08:04 UA Nitrite Negative Last Edit by MARYLIN Cain on 11/21/23 08:04 UA Urobilinogen 0 mg/dL Last Edit by MARYLIN Cain on 11/21/23 08:04 UA Protein 0.5 mg/dL Last Edit by MARYLIN Cain on 11/21/23 08:04 UA pH 6.0 Last Edit by MARYLIN Cain on 11/21/23 08:04 UA Blood 0 Frankie/uL Last Edit by MARYLIN Cain on 11/21/23 08:04 UA Specific [place] 1.015 Last Edit by MARYLIN Cain on 11/21/23 08:04 UA Ketone Negative Last Edit by MARYLIN Cain on 11/21/23 08:04 UA Bilirubin 0 mg/dL Last Edit by MARYLIN Cain on 11/21/23 08:04 UA Glucose 0 mg/dL Last Edit by MARYLIN Cain on 11/21/23 08:04 Results Reviewed Results Reviewed: Laboratory Last Values Urine pH (Auto) 6.0 11/21/23 08:01 Specific [place] (Auto) 1.015 11/21/23 08:01 Urine Protein (Auto) 0.5 mg/dL 11/21/23 08:01 Glucose (UA)(Auto) 0 mg/dL 11/21/23 08:01 Urine Ketones (Auto) Negative 11/21/23 08:01 Urine Blood (Auto) 0 Frankie/uL 11/21/23 08:01 Urine Nitrite (Auto) Negative 11/21/23 08:01 Urine Bilirubin (Auto) 0 mg/dL 11/21/23 08:01 Urine Urobilinogen (Auto) 0 mg/dL 11/21/23 08:01 Leukocyte Esterase (Auto) 2 Alvarez/uL 11/21/23 08:01 Tst Clinic Negative 11/21/23 08:01 Assessment & Plan Assessment & Plan (1) Pelvic inflammatory disease (PID): Comment: 06/11/2023 Code(s): N73.9 - Female pelvic inflammatory disease, unspecified Category: Medical Plan Discussed: UPT is negative, urinalysis 2+ leukocytes-sent for culture. GC chlamydia and BV panel taken. Workup for PID to include pelvic ultrasound, early follow up, repeat follow up in 2 weeks. Ceftriaxone today in antibiotics for 2 weeks. Pelvic rest. Encouraged fluid in healthy diet. Pelvic warnings increase in pain fever flu-like symptoms to report to the ED. [id number] pain medicine such as Tylenol ibuprofen p.r.n. per manufacture's dosing. All of her questions and concerns were addressed to the best of my ability and shared decision making. She is agreeable to the plan of care. This note is constructed using voice recognition software. While every effort has been made to ensure accuracy, biomedical electronics technician errors may have been included. Orders: Orders Urine Culture Today N73.9 - Female pelvic inflammatory disease, unspecified, R10.2 - Pelvic and perineal pain AMB Ceftriaxone Injection Today N73.9 - Female pelvic inflammatory disease, unspecified CT NG by PCR Today R10.2 - Pelvic and perineal pain AMB HCG Urine Test Today R10.2 - Pelvic and perineal pain AMB Urinalysis Automated Today R10.2 - Pelvic and perineal pain US pelvic and transvaginal Today N73.9 - Female pelvic inflammatory disease, unspecified Bacterial Vaginosis Panel Today R10.2 - Pelvic and perineal pain Medications: New metronidazole 500 mg PO BID 14 days 28 tabs 0RF doxycycline hyclate 100 mg PO BID 14 days 28 caps 0RF Coding Level of Care Code Est Pt Level 4 (59415) Diagnoses Pelvic inflammatory disease (PID) N73.9
== END 2023-11-21 09:05 | disposition home or self-care (01) ==
LOC: HO.HWS 07:52
PROVIDERS: Visit Provider Advanced Practice Midwife
DX: N73.9 Female pelvic inflammatory disease, unspecified (principal); R10.2 Pelvic and perineal pain
CPT/HCPCS: 99214

== ENCOUNTER 2023-11-21 07:52 | Outpatient (REF) | payer OTHER, SELFPAY | END 2023-11-21 07:53 | disposition home or self-care (01) | LOC: HO.LAB 07:52 | PROVIDERS: Visit Provider Advanced Practice Midwife | DX: R73.9 Hyperglycemia, unspecified (principal); R10.2 Pelvic and perineal pain; Z97.5 Presence of (intrauterine) contraceptive device | CPT/HCPCS: 81003; 81025; 96372; 99212; J0696 ==

== ENCOUNTER 2023-11-21 08:13 | Outpatient (REF) | payer OTHER, SELFPAY ==
[2023-11-21 12:36] LABS: CT PCR NOT DETECTED (Not Detect.); NG PCR NOT DETECTED (Not Detect.)
[2023-11-21 13:22] LABS: Bacterial Vaginosis PCR NEGATIVE (Negative); Candida Group PCR DETECTED (Not Detect); Candida glab krusei PCR NOT DETECTED (Not Detect); Trichomonas vaginalis PCR NOT DETECTED (Not Detect)
== END 2023-11-21 08:14 | disposition home or self-care (01) ==
LOC: HO.LNP 08:13
PROVIDERS: Visit Provider Advanced Practice Midwife
DX: R10.2 Pelvic and perineal pain (principal); N73.9 Female pelvic inflammatory disease, unspecified
CPT/HCPCS: 0352U; 87086; 87491; 87591

== ENCOUNTER 2023-12-12 11:30 | Outpatient (REF) | payer OTHER, SELFPAY ==
--- NOTE | ~2023-12-12 | US_ITS ---
EXAMINATION: US PELVIS CLINICAL INFORMATION: PID COMPARISON: Pelvic ultrasound May 08, 2023 TECHNIQUE: Ultrasound of the pelvis is performed using both transabdominal and transvaginal transducers along with Doppler. Transvaginal imaging is performed due to inadequate visualization transabdominally. FINDINGS: Uterus: The uterus is anteverted and measures 8.4 x 4.8 x 5.2 cm. The double wall endometrial thickness is 5 mm. IUD in the endometrial cavity. Positioning the device appears to be good position the central fundal region of the uterus. The uterus is smooth in contour and has normal myometrial echogenicity. No visible fibroid. Adnexa: Both ovaries are visualized. There is normal color flow to the adnexa. There is no ovarian torsion. There is no pelvic ascites or fluid collection. Right ovary measures 2.4 x 1.8 x 2.4 cm. Volume 5.3 mL Left ovary measures 3.8 x 1.8 x 1.6 cm. Volume 5.7 mL US/US pelvic and transvaginal IMPRESSION: Normal ultrasound of pelvis. IUD in the endometrial cavity. Electronically signed by: Aramis Mayer MD 12/12/2023 03:31 PM EDT
== END 2023-12-12 11:31 | disposition home or self-care (01) ==
LOC: HO.US 11:30
PROVIDERS: Visit Provider Advanced Practice Midwife
DX: N73.9 Female pelvic inflammatory disease, unspecified (principal)
CPT/HCPCS: 76830; 76856

== ENCOUNTER 2023-12-23 09:24 | Outpatient (REF) | payer OTHER, SELFPAY | END 2023-12-23 09:25 | disposition home or self-care (01) | LOC: HO.LAB 09:24 | PROVIDERS: Visit Provider Advanced Practice Midwife | DX: R10.2 Pelvic and perineal pain (principal); N94.6 Dysmenorrhea, unspecified; N89.8 Other specified noninflammatory disorders of vagina; Z71.2 Person consulting for explanation of examination or test findings; Z97.5 Presence of (intrauterine) contraceptive device | CPT/HCPCS: 81003; 81025; 99212 ==

== ENCOUNTER 2023-12-23 09:24 | Outpatient (AMB) | payer OTHER, SELFPAY ==
--- NOTE | 2023-12-23 09:32 | A.OFFVIS_ITS ---
Vital Signs 12/23/23 09:34 BP 114/70 Intake Visit Reasons: PID follow up Educational Institution President Required: Yes Educational Institution President Language: Rose Grading Supervisor Name: Irlanda [id number] Information Interpreted: non-clinical & clinical Track Repairer: Track Repairer Present Allergies No Known Allergies Allergy (Verified 12/23/23 09:33) Is last menstrual period known: Yes Last menstrual period: 11/25/23 HPI Comments Details: Patient is here today for a follow up ultrasound results, history of PID. She reports her pelvic pain has been ongoing since June usually starts 2 weeks before her cycle, intensifies with the onset of her bleeding and last for 3 days once her bleeding has completed. History of ParaGard. She denies any urinary symptoms. She admits to vaginal discharge, cramping and odor. Using Tylenol usually for the discomfort with a heating pad. Currently has some midline pain that radiates to the left side and to the back. [facility] Medical History (Updated 11/21/23 @ 09:14 by Della Yu CNM) Pelvic inflammatory disease (PID) Surgical History History of placement of ear tubes Social History Alcohol intake: never Patient Tobacco Use Status: Never used Tobacco Gender identity: Female Female Reproductive History Menstrual Age of Menarche: 13 Date of last menstrual period: 11/25/23 Review of Systems Const All systems reviewed & are unremarkable except as noted in HPI and below Physical Exam Vital Signs: Last Vital Signs BP 114/70 12/23/23 09:34 Const General: cooperative, healthy appearing and no acute distress Orientation/consciousness: patient oriented x3 GI Inspection: Yes normal to inspection Palpation (GI): Soft to palpation and Other GI palpation findings present (Nontender) Rectal Exam - Female: visual inspection normal General: Yes bladder normal to palpation External Female Exam: normal appearance of the urethra Speculum Exam - Vagina: normal appearance of the vagina, normal palpation and abnormal vaginal discharge (Thin, white and frothy) Speculum Exam - Cervix: normal appearance of the cervix, normal palpation and Other cervical findings present (IUD strings at the os) Bimanual exam- vagina & uterus: normal bimanual exam, normal palpation, uterine size normal, bladder normal to palpation, normal palpation, uterine shape normal and other (Crampy throughout exam of the pelvis, no CMT) Bimanual Exam- Adnexa, other: normal adnexae Neuro General: patient oriented x3 Results AMB Test Urine AMB Test Urine Negative Last Edit by MARYLIN Cain on 12/23/23 10:13 AMB Urinalysis, Automated UA Leukoctes 0.5 Alvarez/uL Last Edit by MARYLIN Cain on 12/23/23 10:1 3 UA Nitrite Negative Last Edit by Jeanette Hu Kaitlin on 12/23/23 10:13 UA Urobilinogen 0.5 mg/dL Last Edit by MARYLIN Cain on 12/23/23 10 :13 UA Protein 0.5 mg/dL Last Edit by MARYLIN Cain on 12/23/23 10:13 UA pH 7.0 Last Edit by MARYLIN Cain on 12/23/23 10:13 UA Blood 0 Frankie/uL Last Edit by Jeanette Hu Kaitlin on 12/23/23 10:13 UA Specific [place] 1.015 Last Edit by MARYLIN Cain on 12/23/23 10:13 UA Ketone Negative Last Edit by MARYLIN Cain on 12/23/23 10:13 UA Bilirubin 0 mg/dL Last Edit by MARYLIN Cain on 12/23/23 10:13 UA Glucose 0 mg/dL Last Edit by Jeanette Hu Kaitlin on 12/23/23 10:13 Results Reviewed Results Reviewed: Laboratory Last Values Urine pH (Auto) 7.0 12/23/23 10:04 Specific [place] (Auto) 1.015 12/23/23 10:04 Urine Protein (Auto) 0.5 mg/dL 12/23/23 10:04 Glucose (UA)(Auto) 0 mg/dL 12/23/23 10:04 Urine Ketones (Auto) Negative 12/23/23 10:04 Urine Blood (Auto) 0 Frankie/uL 12/23/23 10:04 Urine Nitrite (Auto) Negative 12/23/23 10:04 Urine Bilirubin (Auto) 0 mg/dL 12/23/23 10:04 Urine Urobilinogen (Auto) 0.5 mg/dL 12/23/23 10:04 Leukocyte Esterase (Auto) 0.5 Alvarez/uL 12/23/23 10:04 Tst Clinic Negative 12/23/23 10:[address] [address] Ultrasound Report Signed Patient: Vivi Almendarez MR#: [id number] : 1995 Acct:[id number] Age/Sex: 28 / F ADM Date: 12/12/23 Loc: HO.US Attending Dr: Della Yu CNM Ordering Physician: Della Yu CNM Date of Service: 12/12/23 Procedure(s): US pelvic and transvaginal Accession Number(s): [id number] cc: Della Yu CNM~ EXAMINATION: US PELVIS CLINICAL INFORMATION: PID COMPARISON: Pelvic ultrasound May 08, 2023 TECHNIQUE: Ultrasound of the pelvis is performed using both transabdominal and transvaginal transducers along with Doppler. Transvaginal imaging is performed due to inadequate visualization transabdominally. FINDINGS: Uterus: The uterus is anteverted and measures 8.4 x 4.8 x 5.2 cm. The double wall endometrial thickness is 5 mm. IUD in the endometrial cavity. Positioning the device appears to be good position the central fundal region of the uterus. The uterus is smooth in contour and has normal myometrial echogenicity. No visible fibroid. Adnexa: Both ovaries are visualized. There is normal color flow to the adnexa. There is no ovarian torsion. There is no pelvic ascites or fluid collection. Right ovary measures 2.4 x 1.8 x 2.4 cm. Volume 5.3 mL Left ovary measures 3.8 x 1.8 x 1.6 cm. Volume 5.7 mL US/US pelvic and transvaginal IMPRESSION: Normal ultrasound of pelvis. IUD in the endometrial cavity. Electronically signed by: Aramis Mayer MD 12/12/2023 03:31 PM EDT Dictated By: Aramis Mayer MD Signed By: <Electronically signed by Aramis Mayer MD in OV> 12/12/23 1531 DD/ 1150 TD/TT: 12/12/23 1202 Field Machinist: FORTINO Assessment & Plan Assessment & Plan (1) Pelvic pain: Code(s): R10.2 - Pelvic and perineal pain (2) Dysmenorrhea: Code(s): N94.6 - Dysmenorrhea, unspecified (3) Vaginal odor: Code(s): N89.8 - Other specified noninflammatory disorders of vagina (4) Encounter to discuss test results: Code(s): Z71.2 - Person consulting for explanation of examination or test findings Plan Discussed: Ultrasound findings IUD is in place, otherwise normal exam. Discharge appears to be consistent with bacterial vaginosis plan is to initiate treatment with Flagyl, Flagyl warnings reviewed. Advised to complete the course of medication and to follow up in 2 weeks for a recheck consider using ibuprofen 600 mg with food with her menses for the 1st few days and then switch to Tylenol if needed. If pain increases to call sooner for an immediate evaluation. BV, GC chlamydia obtained, urine analysis sent to the lab for processing due to trace leukocytes. Advised to increase her p.o. fluid intake. All of her questions and concerns were addressed to the best of my ability and shared decision making. She is agreeable to the plan of care. This note is constructed using voice recognition software. While every effort has been made to ensure accuracy, bark grinder errors may have been included. Orders: Orders 2 Bacterial Vaginosis Panel Today N73.9 - Female pelvic inflammatory disease, unspecified, R10.2 - Pelvic and perineal pain AMB HCG Urine Test Today R10.2 - Pelvic and perineal pain CT NG by PCR Today N73.9 - Female pelvic inflammatory disease, unspecified, R10.2 - Pelvic and perineal pain AMB Urinalysis Automated Today R10.2 - Pelvic and perineal pain Urine Culture Today R10.2 - Pelvic and perineal pain Medications: New metronidazole 500 mg PO Q12H 7 days 14 tabs 0RF Coding Level of Care Code Est Pt Level 3 (68977) Diagnoses Pelvic pain R10.2 Dysmenorrhea N94.6 Vaginal odor N89.8 Encounter to discuss test results Z71.2
[2023-12-23 09:34] VITALS: BP 114/70
== END 2023-12-23 12:21 | disposition home or self-care (01) ==
PROVIDERS: Visit Provider Advanced Practice Midwife
DX: R10.2 Pelvic and perineal pain (principal); N94.6 Dysmenorrhea, unspecified; N89.8 Other specified noninflammatory disorders of vagina; Z71.2 Person consulting for explanation of examination or test findings
CPT/HCPCS: 99213

== ENCOUNTER 2023-12-23 10:04 | Outpatient (REF) | payer OTHER, SELFPAY ==
[2023-12-23 14:52] LABS: Bacterial Vaginosis PCR NEGATIVE (Negative); Candida Group PCR DETECTED (Not Detect); Candida glab krusei PCR NOT DETECTED (Not Detect); Trichomonas vaginalis PCR NOT DETECTED (Not Detect)
[2023-12-23 15:20] LABS: CT PCR NOT DETECTED (Not Detect.); NG PCR NOT DETECTED (Not Detect.)
== END 2023-12-23 10:05 | disposition home or self-care (01) ==
LOC: HO.LNP 10:04
PROVIDERS: Visit Provider Advanced Practice Midwife
DX: N73.9 Female pelvic inflammatory disease, unspecified (principal); R10.2 Pelvic and perineal pain
CPT/HCPCS: 0352U; 87086; 87491; 87591

== ENCOUNTER 2024-02-04 13:50 | Outpatient (AMB) | payer OTHER, SELFPAY ==
[2024-02-04 14:12] VITALS: BP 110/62; TEMP 37.1
--- NOTE | 2024-02-04 14:12 | MHC.OFFVIS ---
Vital Signs 02/04/24 14:12 Height 5 ft 3 in BP 110/62 Blood Pressure Location Lt brachial Position Sitting Temp 98.7 F Temp Source Oral Intake Visit Reasons: pelvic pain Cork Painter And Grader Required: Yes Cork Painter And Grader Language: Naturopathic Physician Services: Cork Painter And Grader Present (in person) Cork Painter And Grader Name: Aishwarya COULTER Information Interpreted: non-clinical & clinical Consulting Utility Forester: Consulting Utility Forester Present (Aishwarya COULTER) Allergies No Known Allergies Allergy (Verified 12/23/23 09:33) HPI Comments Details: Patient is here today with concerns over chronic pelvic pain history of PID in the past year. She reports she has had pain on and off for 7 months but seemed to have an increase in discomfort recently with her cycle this week. LMP 02/02/2024. She reports being in bed yesterday with nausea vomiting fever or chills. She has no diarrhea, urine symptoms, discharge or odor. UPT is negative today. [facility] Medical History (Updated 02/04/24 @ 14:52 by Della Yu CNM) IUD (intrauterine device) in place Pelvic inflammatory disease (PID) Surgical History History of placement of ear tubes Social History Alcohol intake: never Patient Tobacco Use Status: Never used Tobacco Gender identity: Female Female Reproductive History Menstrual Age of Menarche: 13 Duration of menses: 3-5 days Date of last menstrual period: 02/01/24 control method: progestin IUCD Total pregnancies: 2 Full term: 2 Number of Living Children: 2 History of STI: No Review of Systems Const All systems reviewed & are unremarkable except as noted in HPI and below Physical Exam Vital Signs: Last Vital Signs Temp 98.7 F 02/04/24 14:12 BP 110/62 02/04/24 14:12 Const General: cooperative, healthy appearing and no acute distress Orientation/consciousness: patient oriented x3 GI Inspection: Yes normal to inspection Palpation (GI): Soft to palpation and Other GI palpation findings present (Nontender) Rectal Exam - Female: visual inspection normal General: Yes bladder normal to palpation External Female Exam: normal appearance of the urethra Speculum Exam - Vagina: normal appearance of the vagina, normal palpation, normal vaginal discharge and vaginal bleeding Speculum Exam - Cervix: normal appearance of the cervix, normal palpation and Other cervical findings present (IUD strings at the os) Bimanual exam- vagina & uterus: normal bimanual exam, normal palpation, uterine size normal, bladder normal to palpation, normal palpation, uterine shape normal and non-tender Bimanual Exam- Adnexa, other: normal adnexae OB/external & speculum: vaginal bleeding Neuro General: patient oriented x3 Office Meds ceftriaxone 500 mg solution for injection Performing Provider: Della Yu CNM Performing Location: [facility] Administered by: Marisol Gomez on 02/04/24 15:13 Dose Route Admin Location Dispensed Lot Number Expiration Date [facility] Non Profit Financial Controller 500 mg IM LGM 500 mg [id number] 03/23/25 2068-8430-94 HOSPIRA/CreatiVasc Medical Results AMB Urinalysis Dipstick UR Leukocytes Negative Last Edit by Yady Mora LPN on 02/04/24 14:42 UR Nitrite Negative Last Edit by Yady Mora LPN on 02/04/24 14:42 UR Urobilinogen 4 Last Edit by Yady Mora LPN on 02/04/24 14:42 UR Protein Negative Last Edit by Yady Mora LPN on 02/04/24 14:42 UR Ph 5.5 Last Edit by Yady Mora LPN on 02/04/24 14:42 UR Blood Negative Last Edit by Yady Mora LPN on 02/04/24 14:42 UR Specific [place] 1.015 Last Edit by Yady Mora LPN on 02/04/24 14:42 UR Ketone Negative Last Edit by Yady Mora LPN on 02/04/24 14:42 UR Bilirubin Negative Last Edit by Yady Mora LPN on 02/04/24 14:42 UR Glucose 100 Last Edit by Yady Mora LPN on 02/04/24 14:42 AMB Test Urine AMB Test Urine Negative Last Edit by Yady Mora LPN on 02/04/24 14:29 Results Reviewed Results Reviewed: Laboratory Last Values Urine pH (Clinic) 5.5 02/04/24 14:38 Specific [place] (Clinic) 1.015 02/04/24 14:38 Ur Protein (Clinic) Negative 02/04/24 14:38 Ur Ketones (Clinic) Negative 02/04/24 14:38 Urine Blood (Clinic) Negative 02/04/24 14:38 Urine Nitrite Negative 02/04/24 14:38 Urine Bilirubin (Clinic) Negative 02/04/24 14:38 Urobilinogen (Clinic) 4 02/04/24 14:38 Leukocyte Esterase (Clinic) Negative 02/04/24 14:38 Urine Glucose (Clinic) 100 02/04/24 14:38 Tst Clinic Negative 02/04/24 14:28 Assessment & Plan Assessment & Plan (1) Hematuria: Code(s): R31.9 - Hematuria, unspecified Category: Medical Qualifiers: Hematuria type: unspecified type Qualified Code(s): R31.9 - Hematuria, unspecified (2) IUD check up: Code(s): Z30.431 - Encounter for routine checking of intrauterine contraceptive device Category: Medical (3) Pelvic pain: Code(s): R10.2 - Pelvic and perineal pain Category: Medical (4) Acute pelvic inflammatory disease: Code(s): N73.0 - Acute parametritis and pelvic cellulitis Plan Discussed: Treatment for PID to include ceftriaxone now, in initiate Flagyl and doxy for 2 weeks. Pelvic rest and warnings. Encouraged hydration and comfort measures, recheck in 2 days, and then in 2 weeks. Consider removal of IUD and replacing another product at her next visit to discuss this further. Cevh-tss-lxeqyde Tylenol or ibuprofen with food and use of heating pad p.r.n. if pain is increased her severe go right to the emergency room. Importance of taking medicine with food, completing all meds. Pelvic ultrasound ordered this week. All of her questions and concerns were addressed to the best of my ability and shared decision making. She is agreeable to the plan of care. This note is constructed using voice recognition software. While every effort has been made to ensure accuracy, switchman supervisor errors may have been included. Orders: Orders CT NG by PCR Today R10.2 - Pelvic and perineal pain, R31.9 - Hematuria, unspecified US pelvic and transvaginal Today R10.2 - Pelvic and perineal pain, Z30.431 - Encounter for routine checking of intrauterine contraceptive device Bacterial Vaginosis Panel Today R10.2 - Pelvic and perineal pain AMB Ceftriaxone Injection Today N73.0 - Acute parametritis and pelvic cellulitis, R10.2 - Pelvic and perineal pain Medications: New metronidazole 500 mg PO BID 28 tabs 0RF 14 days doxycycline hyclate 100 mg PO BID 28 caps 0RF 14 days Coding Level of Care Code Est Pt Level 4 (01981) Diagnoses Hematuria, unspecified type R31.9 Hematuria type: unspecified type IUD check up Z30.431 Pelvic pain R10.2 Acute pelvic inflammatory disease N73.0
== END 2024-02-04 15:22 | disposition home or self-care (01) ==
PROVIDERS: Visit Provider Advanced Practice Midwife
DX: R31.9 Hematuria, unspecified (principal); Z30.431 Encounter for routine checking of intrauterine contraceptive device; R10.2 Pelvic and perineal pain; N73.0 Acute parametritis and pelvic cellulitis
CPT/HCPCS: 99214

== ENCOUNTER 2024-02-04 13:50 | Outpatient (REF) | payer OTHER, SELFPAY ==
[2024-02-05 03:20] LABS: CT PCR NOT DETECTED (Not Detect.); NG PCR NOT DETECTED (Not Detect.)
[2024-02-05 12:07] LABS: Bacterial Vaginosis PCR NEGATIVE (Negative); Candida Group PCR NOT DETECTED (Not Detect); Candida glab krusei PCR NOT DETECTED (Not Detect); Trichomonas vaginalis PCR NOT DETECTED (Not Detect)
== END 2024-02-04 13:51 | disposition home or self-care (01) ==
LOC: HO.LNP 13:50
PROVIDERS: Visit Provider Advanced Practice Midwife
DX: R10.2 Pelvic and perineal pain (principal); R31.9 Hematuria, unspecified; N73.0 Acute parametritis and pelvic cellulitis
CPT/HCPCS: 0352U; 87491; 87591; 96372; 99212; J0696

== ENCOUNTER 2024-02-05 12:14 | Outpatient (REF) | payer OTHER, SELFPAY ==
--- NOTE | ~2024-02-05 | US_ITS ---
EXAMINATION: US PELVIS COMPLETE CLINICAL INFORMATION: Encounter for routine checking of intrauterine contraceptive device. COMPARISON: Pelvic ultrasound 12/12/2023 TECHNIQUE: Transabdominal and transvaginal images of the pelvis were obtained. Color and spectral Doppler evaluation of the ovaries was performed. FINDINGS: UTERUS: Anteverted. Normal size and contour, measuring 8 x 4.2 x 4.4 cm (cervix to fundus x AP x transverse). Uniform, homogeneous endometrium measures 0.6 cm in width. IUD is properly positioned within the endometrial cavity. RIGHT OVARY: Normal size and echogenicity measuring 2.9 x 1.5 x 1.4 cm, volume 3.2 mL. Previously 2.4 x 1.8 x 2.4 center measures. LEFT OVARY: Not visualized. Prominent left adnexal/myometrial veins measure up to 0.5 cm incidentally noted. Arterial and venous waveforms are identified in both ovaries on spectral Doppler assessment. FREE FLUID: No pelvic free fluid. US/US pelvic and transvaginal IMPRESSION: IUD is properly positioned within the endometrial cavity. Electronically signed by: Eunice Serrano DO 02/05/2024 04:59 PM [facility]
== END 2024-02-05 12:15 | disposition home or self-care (01) ==
LOC: HO.US 12:14
PROVIDERS: Visit Provider Advanced Practice Midwife
DX: Z30.431 Encounter for routine checking of intrauterine contraceptive device (principal); R10.2 Pelvic and perineal pain
CPT/HCPCS: 76830; 76856

== ENCOUNTER 2024-02-06 10:08 | Outpatient (AMB) | payer OTHER, SELFPAY ==
[2024-02-06 10:17] VITALS: BP 112/72
--- NOTE | 2024-02-06 10:17 | MHC.OFFVIS ---
Vital Signs 02/06/24 10:17 BP 112/72 Intake Visit Reasons: recheck pelvis /ultra sound follow up Drywall Hanger Framer Required: Yes Drywall Hanger Framer Language: Anchorman Services: Drywall Hanger Framer Present (in person) Drywall Hanger Framer Name: MARYLIN Kline Information Interpreted: non-clinical & clinical Accompanied by: Self / Same As Patient Allergies No Known Allergies Allergy (Verified 02/06/24 10:17) HPI Comments Details: Patient is here today for a pelvic recheck after being treated initially for PID 2 days ago, was given ceftriaxone in the office and ordered doxycycline and Flagyl to be taken b.i.d. for 2 weeks. She reports she has gone to the pharmacy to shredder picker the prescriptions, she is concerned that she is still feeling pelvic cramping and discomfort. She admits she was busy with her who was being evaluated up the ED, she reports he is doing well. Plan is to remove the IUD at future visit, she is interested in a tubal ligation. History of migraine with aura. [facility] Medical History (Updated 02/06/24 @ 11:09 by Della Yu CNM) Migraine with aura IUD (intrauterine device) in place Pelvic inflammatory disease (PID) Surgical History History of placement of ear tubes Social History Alcohol intake: never Patient Tobacco Use Status: Never used Tobacco Gender identity: Female Female Reproductive History Menstrual Age of Menarche: 13 Review of Systems Const All systems reviewed & are unremarkable except as noted in HPI and below Physical Exam Vital Signs: Last Vital Signs BP 112/72 02/06/24 10:17 Const General: cooperative, healthy appearing and no acute distress Orientation/consciousness: patient oriented x3 GI Inspection: Yes normal to inspection Palpation (GI): Soft to palpation and Other GI palpation findings present (Nontender) Rectal Exam - Female: visual inspection normal General: Yes bladder normal to palpation External Female Exam: normal appearance of the urethra Speculum Exam - Vagina: normal appearance of the vagina, normal palpation and normal vaginal discharge Speculum Exam - Cervix: normal appearance of the cervix, normal palpation and Other cervical findings present (IUD strings at the os) Bimanual exam- vagina & uterus: normal bimanual exam, normal palpation, uterine size normal, bladder normal to palpation, normal palpation, uterine shape normal, non-tender and Uterine tenderness (Slightly) Bimanual Exam- Adnexa, other: normal adnexae Neuro General: patient oriented x3 Results Reviewed Results Reviewed: [address] [address] Ultrasound Report Signed Patient: Vivi Almendarez MR#: [id number] : 1995 Acct:[id number] Age/Sex: 28 / F ADM Date: 02/05/24 Loc: .[place] Attending Dr: Della Yu CNM Ordering Physician: Della Yu CNM Date of Service: 02/05/24 Procedure(s): US pelvic and transvaginal Accession Number(s): [id number] cc: Della Yu CNM~ EXAMINATION: US PELVIS COMPLETE CLINICAL INFORMATION: Encounter for routine checking of intrauterine contraceptive device. COMPARISON: Pelvic ultrasound 12/12/2023 TECHNIQUE: Transabdominal and transvaginal images of the pelvis were obtained. Color and spectral Doppler evaluation of the ovaries was performed. FINDINGS: UTERUS: Anteverted. Normal size and contour, measuring 8 x 4.2 x 4.4 cm (cervix to fundus x AP x transverse). Uniform, homogeneous endometrium measures 0.6 cm in width. IUD is properly positioned within the endometrial cavity. RIGHT OVARY: Normal size and echogenicity measuring 2.9 x 1.5 x 1.4 cm, volume 3.2 mL. Previously 2.4 x 1.8 x 2.4 center measures. LEFT OVARY: Not visualized. Prominent left adnexal/myometrial veins measure up to 0.5 cm incidentally noted. Arterial and venous waveforms are identified in both ovaries on spectral Doppler assessment. FREE FLUID: No pelvic free fluid. US/US pelvic and transvaginal IMPRESSION: IUD is properly positioned within the endometrial cavity. Electronically signed by: Eunice Serrano DO 02/05/2024 04:59 PM [facility] Dictated By: Eunice Serrano Signed By: <Electronically signed by Eunice Serrano in OV> 02/05/24 9529 DD/ 1233 TD/TT: 02/05/24 1247 Administration Vice President: Assessment & Plan Assessment & Plan (1) Pelvic inflammatory disease (PID): Code(s): N73.9 - Female pelvic inflammatory disease, unspecified Category: Medical Plan Discussed ultrasound findings: IUD in place no pelvic abscesses noted, or other abnormal findings. Strongly advised to start her antibiotics today, to complete all of the doses, take the medication with food, if any concerns or issues with taking the medication to call the office promptly. Schedule her 2 week follow up, consider removal of the IUD at that visit. She is interested in a tubal ligation, consult appointment to be scheduled with Dr. Leone. If decides to not have a tubal then she can consider her other options. Due to the history of migraines with aura she will really looking at progesterone only products if to using hormonal options. Use of [id number] medication for discomfort. All of her questions and concerns were addressed to the best of my ability and shared decision making. She is agreeable to the plan of care. This note is constructed using voice recognition software. While every effort has been made to ensure accuracy, sign painter helper errors may have been included. Medications: Discontinued terconazole 0.8% Discontinued Reason: Patient Completed Course 1 appful vaginal BEDTIME 3 days 20 grams 0RF terconazole 0.8% Discontinued Reason: Patient Completed Course 1 appful vaginal BEDTIME 3 days 20 grams 0RF Coding Level of Care Code Est Pt Level 3 (00145) Diagnoses Pelvic inflammatory disease (PID) N73.9
== END 2024-02-06 11:13 | disposition home or self-care (01) ==
PROVIDERS: Visit Provider Advanced Practice Midwife
DX: N73.9 Female pelvic inflammatory disease, unspecified (principal)
CPT/HCPCS: 99213

== ENCOUNTER → 2024-02-06 10:08 | Outpatient (BNVA) | payer OTHER, SELFPAY | PROVIDERS: Visit Provider Advanced Practice Midwife | DX: N73.9 Female pelvic inflammatory disease, unspecified (principal) | CPT/HCPCS: 99212 ==

== ENCOUNTER 2024-02-24 13:49 | Outpatient (AMB) | payer OTHER, SELFPAY ==
--- NOTE | 2024-02-24 13:57 | MHC.OFFVIS ---
Intake Visit Reasons: recheck pelvis PID/IUD Removal Wellness Coach: Wellness Coach Present (Kristen) Allergies No Known Allergies Allergy (Verified 02/24/24 13:57) HPI Comments Details: Patient is here for a follow up pelvic recheck an IUD removal, history of PID treated completed her medication is feeling good. She denies any urinary symptoms pelvic pain, discharge or odors. She is planning to start Depo-Provera has used in the past. She denies any contraindications to control such as: history of DVT or pulmonary emboli, high blood pressure, liver disease, thrombolic disorders, Lupus, +MONSERRAT, breast cancer, or smoking. Known history of migraines with aura. [facility] Medical History (Updated 02/06/24 @ 11:09 by Della Yu CNM) Migraine with aura IUD (intrauterine device) in place Pelvic inflammatory disease (PID) Surgical History History of placement of ear tubes Social History Alcohol intake: never Patient Tobacco Use Status: Never used Tobacco Gender identity: Female Female Reproductive History Menstrual Age of Menarche: 13 Review of Systems Const All systems reviewed & are unremarkable except as noted in HPI and below Physical Exam Const General: cooperative, healthy appearing and no acute distress Orientation/consciousness: patient oriented x3 GI Inspection: Yes normal to inspection Palpation (GI): Soft to palpation and Other GI palpation findings present (Nontender) Rectal Exam - Female: visual inspection normal General: Yes bladder normal to palpation External Female Exam: normal appearance of the urethra Speculum Exam - Vagina: normal appearance of the vagina, normal palpation and normal vaginal discharge Speculum Exam - Cervix: normal appearance of the cervix, normal palpation and Other cervical findings present (IUD strings present at the os) Bimanual exam- vagina & uterus: normal bimanual exam, normal palpation, uterine size normal, bladder normal to palpation, normal palpation, uterine shape normal and non-tender Bimanual Exam- Adnexa, other: normal adnexae Neuro General: patient oriented x3 Office Procedures Depo Questionnaire If YES to any of the following questions, please consult a provider. Menstrual pattern since last injection has been: Not Applicable Irregular bleeding?: Not Applicable Breast lumps or other breast changes?: Not Applicable Changes in weight or appetite?: Not Applicable Depression or changes in mood?: Not Applicable Abnormal hair growth or loss?: Not Applicable Skin problems (rash, acne, discoloration)?: Not Applicable Pain at the injection site?: Not Applicable Headaches?: Not Applicable Nervousness?: Not Applicable Abdominal pain or cramping?: Not Applicable Dizziness or nausea?: Not Applicable Fatigue or weakness?: Not Applicable Decrease in sexual drive?: Not Applicable Chest pain or shortness of breath?: Not Applicable Swelling in arms or legs?: Not Applicable Form completed by?: Luciano loo LPN Contraception Insert/Removal Details Details: The patient presents today for a IUD removal. She is planning to start Depo-Provera today. She was counseled regarding the removal of her IUD. She was consented for the procedure along with anticipatory guidance for the removal and the consents form was signed. She desires to proceed with the IUD removal. IUD Removal Procedure: The patient was placed in the dorsal lithotomy position. A speculum was inserted vaginally and the cervix and strings were visualized at the os. A ring forcep was utilized, and the patient was asked to give a deep cough while the strings were grasped and gently tugged at the same time, removing the IUD device intact. Minimal bleeding was observed. All of the equipment was removed. The patient tolerated the procedure well and left the office in good condition. IUD Removal Information: You may have light bleeding for several days, tapering off to a brown or pink color. Mild cramping after removal is common. If not allergic, you may take an over the counter mild analgesic for the discomfort, such as Tylenol or Advil (use dosing and frequency per the manufacturers recommendations). Call the office if you experience: fever (over 100.4), flu like symptoms, abdominal or pelvic pain, foul smelling discharge or heavy bleeding. If not planning for a future , another form of control is recommended. Use of condoms for prevention of STI's is also recommended, if indicated. This note is constructed using voice recognition software. While every effort has been made to ensure accuracy, interactive media marketing strategist errors may have been included. 90137 - Removal Office Meds Depo-Provera 150 mg/mL intramuscular syringe Performing Provider: Della Yu CNM Performing Location: [facility] Administered by: Yady Loo LPN on 02/24/24 15:27 Dose Route Admin Location Dispensed Lot Number Expiration Date NDC Regrinder Operator 150 mg IM left deltoid 1 mL [id number] 11/21/25 29542-420-05 Assessment & Plan Assessment & Plan (1) Encounter for IUD removal: Code(s): Z30.432 - Encounter for removal of intrauterine contraceptive device (2) Initiation of Depo Provera: Code(s): Z30.013 - Encounter for initial prescription of injectable contraceptive Plan Depo Provera Use: Counseled regarding: risk/benefits, alternative options. Use-frequency, side effects including weight gain, acne, hair loss, mood changes, unpredictable bleeding, or no bleeding, bone loss which is often improved when stopping Depo Provera, but not always completely reversible. Warnings: Severe headache, loss of vision, chest pain, difficulty breathing, severe stomach pain, pain or swelling in an extremity. Go to the nearest ED if experiencing any of these symptoms. If any new breast lumps or concerns notify the office. Start Depo in the first 5 days of the menstrual cycle or if no UPI for 2 weeks and a negative test, then always use a BUM for an additional 7 days. Rx to be sent to the pharmacy, then return to the office for a nurse visit for the Depo Provera, then every 12 weeks. Maintain a healthy lifestyle with a well balance diet including calcium and Vit D, along with regular weight bearing exercises to support good bone health. control hormone use warnings: go to ER if and loss of vision, blindness, severe headache, chest pain or difficulty breathing, severe abdominal pain, or any pain or swelling in an extremity. Schedule annual exam. The patient expressed understanding and agreement with the plan of care. All of her questions and concerns were addressed to the best of my ability. This note is constructed using voice recognition software. While every effort has been made to ensure accuracy, interactive media marketing strategist errors may have been included. Orders: Orders AMB Medroxyprogesterone Injection Patient Supplied 02/24/24 Z30.42 - Encounter for surveillance of injectable contraceptive Medications: New medroxyprogesterone (Depo-Provera) 150 mg IM [id number] 1 mL 4RF 90 days Coding Level of Care Code Procedure Only Diagnoses Encounter for IUD removal Z30.432 Initiation of Depo Provera Z30.013 CPT Codes Details - Contraception: 88330 - Removal ([id number]) Comment Additional counseling due to Depo initiation in administration
== END 2024-02-24 15:04 | disposition home or self-care (01) ==
LOC: HO.HWS 13:49
PROVIDERS: Visit Provider Advanced Practice Midwife
DX: Z30.432 Encounter for removal of intrauterine contraceptive device (principal)
CPT/HCPCS: 11982; 58301

== ENCOUNTER → 2024-02-24 13:49 | Outpatient (BNVA) | payer OTHER, SELFPAY | PROVIDERS: Visit Provider Advanced Practice Midwife | DX: Z30.432 Encounter for removal of intrauterine contraceptive device (principal); Z30.42 Encounter for surveillance of injectable contraceptive | CPT/HCPCS: 11982; 58301; 96372; J1050 ==

== ENCOUNTER 2024-11-10 10:45 | Outpatient (AMB) | payer OTHER, SELFPAY ==
--- NOTE | 2024-11-10 10:48 | MHC.OFFVIS ---
Vital Signs 11/10/24 10:57 Height 5 ft 3 in Weight 136 lb BMI 24.1 BP 100/64 Intake Visit Reasons: control consult Intake Note: pt c/o vaginal odor and pelvic pain wants to restart Depo Sparker And Patcher: Sparker And Patcher Present (Kristen) Allergies No Known Allergies Allergy (Verified 11/10/24 10:48) HPI Comments Details: Patient is here today for a control consult, wants to restart Depo-Provera, accompanied by her 2 daughters. Currently not intimate with the partner in his . She reports pelvic pain on the right side. History of migraines with aura. [facility] Medical History Initiation of Depo Provera Migraine with aura Pelvic inflammatory disease (PID) Surgical History History of placement of ear tubes Social History Alcohol intake: never Patient Tobacco Use Status: Never used Tobacco Gender identity: Female Female Reproductive History Menstrual Age of Menarche: 13 Review of Systems Const All systems reviewed & are unremarkable except as noted in HPI and below Physical Exam Vital Signs: Last Vital Signs BP 100/64 11/10/24 10:57 BMI result Body Mass Index 24.1 Const General: cooperative, healthy appearing and no acute distress Orientation/consciousness: patient oriented x3 GI Inspection: Yes normal to inspection Palpation (GI): Soft to palpation and Other GI palpation findings present (Nontender) Rectal Exam - Female: visual inspection normal General: Yes bladder normal to palpation External Female Exam: normal appearance of the urethra Speculum Exam - Vagina: normal appearance of the vagina, normal palpation and normal vaginal discharge Speculum Exam - Cervix: normal appearance of the cervix and normal palpation Bimanual exam- vagina & uterus: normal bimanual exam, normal palpation, uterine size normal, bladder normal to palpation, normal palpation, uterine shape normal and non-tender Bimanual Exam- Adnexa, other: normal adnexae and tender (slight) on the left Neuro General: patient oriented x3 Office Procedures Depo Questionnaire If YES to any of the following questions, please consult a provider. Date of last gynecology exam: 11/10/24 test in office results: Negative Irregular bleeding?: No Breast lumps or other breast changes?: No Changes in weight or appetite?: No Depression or changes in mood?: No Abnormal hair growth or loss?: No Skin problems (rash, acne, discoloration)?: No Pain at the injection site?: No Headaches?: No Nervousness?: No Abdominal pain or cramping?: No Dizziness or nausea?: No Fatigue or weakness?: No Decrease in sexual drive?: No Chest pain or shortness of breath?: No Swelling in arms or legs?: No Form completed by?: Miley Pritchett LPN Office Meds Depo-Provera 150 mg/mL intramuscular syringe Performing Provider: Della Yu CNM [place] [facility] [place] [facility] Administered by: Miley Pritchett LPN on 11/10/24 12:11 Dose Route Admin Location Dispensed Lot Number Expiration Date [facility] Senior Advisor 150 mg IM right deltoid 1 mL [id number] 12/21/25 72229-390-60 [employer] Total Dispensed Waste 1 mL 0 % Results AMB Test Urine AMB Test Urine Negative Last Edit by MARYLIN Cain on 11/10/24 10:59 AMB Urinalysis, Automated UA Leukoctes 3 Alvarez/uL Last Edit by MARYLIN Cain on 11/10/24 10:59 UA Nitrite Negative Last Edit by MARYLIN Cain on 11/10/24 10:59 UA Urobilinogen 0 mg/dL Last Edit by MARYLIN Cain on 11/10/24 10:59 UA Protein 0 mg/dL Last Edit by MARYLIN Cain on 11/10/24 10:59 UA pH 6.0 Last Edit by MARYLIN Cain on 11/10/24 10:59 UA Blood 0 Frankie/uL Last Edit by MARYLIN Cain on 11/10/24 10:59 UA Specific [place] 1.020 Last Edit by MARYLIN Cain on 11/10/24 10:59 UA Ketone Negative Last Edit by MARYLIN Cain on 11/10/24 10:59 UA Bilirubin 0 mg/dL Last Edit by MARYLIN Cain on 11/10/24 10:59 UA Glucose 0 mg/dL Last Edit by MARYLIN Cain on 11/10/24 10:59 Results Reviewed Results Reviewed: Laboratory Last Values Urine pH (Auto) 6.0 11/10/24 10:58 Specific [place] (Auto) 1.020 11/10/24 10:58 Urine Protein (Auto) 0 mg/dL 11/10/24 10:58 Glucose (UA)(Auto) 0 mg/dL 11/10/24 10:58 Urine Ketones (Auto) Negative 11/10/24 10:58 Urine Blood (Auto) 0 Frankie/uL 11/10/24 10:58 Urine Nitrite (Auto) Negative 11/10/24 10:58 Urine Bilirubin (Auto) 0 mg/dL 11/10/24 10:58 Urine Urobilinogen (Auto) 0 mg/dL 11/10/24 10:58 Leukocyte Esterase (Auto) 3 Alvarez/uL 11/10/24 10:58 Tst Clinic Negative 11/10/24 10:58 Assessment & Plan Assessment & Plan (1) Initiation of Depo Provera: Code(s): Z30.013 - Encounter for initial prescription of injectable contraceptive Category: Medical Plan: Depo Provera today, then in 12wks. Use of BUM x 7d. Safe sex w/th condoms if indicated. The patient expressed understanding and agreement with the plan of care. All of her questions and concerns were addressed to the best of my ability. (2) Pelvic pain: Code(s): R10.2 - Pelvic and perineal pain Category: Medical Plan BV, GC/CT obtained. Pelvic US planned. Follow up pending results. Pelvic rest and warnings reviewed. When to call for follow up if needed sooner. This note is constructed using voice recognition software. While every effort has been made to ensure accuracy, application analyst errors may have been included. Orders: Orders US pelvic and transvaginal Today R10.2 - Pelvic and perineal pain Bacterial Vaginosis Panel Today R10.2 - Pelvic and perineal pain CT NG by PCR Vag/Cerv Today R10.2 - Pelvic and perineal pain AMB Medroxyprogesterone Injection Patient Supplied Today Z30.013 - Encounter for initial prescription of injectable contraceptive Urine Culture Today R10.2 - Pelvic and perineal pain AMB HCG Urine Test Today R10.2 - Pelvic and perineal pain AMB Urinalysis Automated Today N89.8 - Other specified noninflammatory disorders of vagina, R10.2 - Pelvic and perineal pain Medications: New medroxyprogesterone (Depo-Provera) 150 mg IM [id number] 1 mL 4RF 90 days Coding Level of Care Code Est Pt Level 3 (32878) Diagnoses Initiation of Depo Provera Z30.013 Pelvic pain R10.2
[2024-11-10 10:57] VITALS: BP 100/64; BMI 24.1
--- OUTSIDE RECORDS SUMMARY | 2024-11-10 12:07 | XMS_ITS | Clinical Summary ---
Author Organization Patient Business [facility] Address [address] [place] [address] Care Team Providers Care Labor Relations Consultant Name Role Phone Jose Miller MD Primary Care Provider [phone] Surgical History Surgery Date Site/Laterality Comments OTHER SURGICAL HISTORY PROCEDURE: ---- OTHER ----; COMMENT: tube in right ear at 14yo Family History Medical History Relation Name Comments Schizophrenia Brother 1 No Known Problems Brother 2 No Known Problems Brother 3 No Known Problems Father Diabetes Maternal Grandfather No Known Problems Maternal Grandmother No Known Problems Mother Cancer of Small Bowel Paternal Grandfather Other: cancer unknown Paternal Grandfather Diabetes Paternal Grandmother Blindness Neg Hx Breast cancer Neg Hx Cataracts Neg Hx Colon cancer Neg Hx Glaucoma Neg Hx Macular degeneration Neg Hx Ovarian cancer Neg Hx Prostate cancer Neg Hx Strabismus Neg Hx Relation Name Status Comments Brother 1 Alive Brother 2 Alive Brother 3 Alive Father Alive Maternal Grandfather Alive Maternal Grandmother Mother Alive Paternal Grandfather Alive Paternal Grandmother Alive Social History Tobacco Use Types Packs/Day Years Used Date Smoking Tobacco: Never Smokeless Tobacco: Never Alcohol Use Standard Drinks/Week Comments No 0 (1 standard drink = 0.6 oz pur e alcohol) Comments Unknown Sex and Gender Information Value Date Recorded Sex Assigned at Not on file Legal Sex Female 4:19 PM EDT Gender Identity Not on file Sexual Orientation Not on file Obstetrics History Plan of Treatment Health Maintenance Due Date Last Done Comments Hepatitis B Vaccines (1 of 3 - 19+ 3-dose series) 2013 HPV Vaccines (2 - 3-dose series) 06/14/2015 05/17/2015 HIV Screening 08/23/2019 Hepatitis C Screening 08/23/2019 Social Influencers of Health Screening 08/23/2019 Cervical Cancer Screening: P ap Smear 09/01/2022 09/02/2019 COVID-19 Vaccine (1 - 2023-2 5 season) 2023 Depression Screening 03/24/2024 Influenza Vaccine (#1) 2024 0, 01/02/2017 DTaP,Tdap,and Td Vaccines (3 - Td or Tdap) 12/28/2029 12/29/2019, 01/02/2017 HIB Vaccines Aged Out No longer eligi ble based on patient's age to complete this topic Hepatitis A Vaccines Aged Out No long er eligible based on patient's age to complete this topic IPV Vaccines Aged Out No longer eligi ble based on patient's age to complete this topic MMR Vaccines Aged Out No longer eligi ble based on patient's age to complete this topic Meningococcal ACWY Vaccine Aged Out N o longer eligible based on patient's age to complete this topic Meningococcal B Vaccine Aged Out No l onger eligible based on patient's age to complete this topic Pneumococcal Vaccine: Pediatrics (0 to 5 Years) and At-Risk Patients (6 to 49 Years) Aged Out No longer eligible b ased on patient's age to complete this topic RSV Immunization Patients Under 20 months Aged Out No longer eligible b ased on patient's age to complete this topic Varicella Vaccines Aged Out No longer eligible based on patient's age to complete this topic Procedures Procedure Name Priority Date/Time Associated Diagnosis Comments PAP SMEAR Routine 09/02/2019 from Last 3 Months or Most Recently Relevant to Health Maintenance Results * Pap smear (09/02/2019) 09/02/2019 Narrative HISTORICAL TESTING LAB RESULTING AGENCY - 09/06/2019 10:51 AM EDT [id number] THINPREP PAP, IMAGED: NEGATIVE FOR SQUAMOUS INTRAEPITHELIAL LESION AND MALIGNANCY . ELEONORA IS PRESENT. ANGELIKA LAWSON(ASCP) (CASE ELECTRONICALLY SIGNED 09 06 2019) ADEQUACY: SATISFACTORY ENDOCERVICAL/TRANSFORMATION ZONE COMPONENT PRESENT. SOURCE: THINPREP PAP HPV IF ASCUS, CERVICAL, IMAGED CLINICAL INFORMATION: HPV IF DIAGNOSIS OF ASCUS. , PAP HX NEG, LMP 06/11/19, Z12.4 Zeinab Byers CNM LAB CYTOLOGY ORDERABLES Final R esult HISTORICAL TESTING LAB RESULTING AGENCY from Last 3 Months or Most Recently Relevant to Health Maintenance Care Teams Labor Relations Consultant Relationship Specialty Start Date End Date Jose Miller MD PCP - General Internal Medicine 05/30/21
== END 2024-11-10 12:10 | disposition home or self-care (01) ==
LOC: HO.HWS 10:45
PROVIDERS: Visit Provider Advanced Practice Midwife
DX: Z30.013 Encounter for initial prescription of injectable contraceptive (principal); R10.2 Pelvic and perineal pain; N89.8 Other specified noninflammatory disorders of vagina
CPT/HCPCS: 99213

== ENCOUNTER 2024-11-10 10:45 | Outpatient (REF) | payer OTHER, SELFPAY | END 2024-11-10 10:46 | disposition home or self-care (01) | LOC: HO.LAB 10:45 | PROVIDERS: Visit Provider Advanced Practice Midwife | DX: Z30.013 Encounter for initial prescription of injectable contraceptive (principal); N89.8 Other specified noninflammatory disorders of vagina; R10.2 Pelvic and perineal pain; Z32.02 Encounter for pregnancy test, result negative | CPT/HCPCS: 81003; 81025; 96372; 99212; J1050 ==

== ENCOUNTER 2024-11-10 11:30 | Outpatient (REF) | payer OTHER, SELFPAY ==
[2024-11-10 13:10] LABS: Bacterial Vaginosis PCR POSITIVE (Negative); Candida Group PCR NOT DETECTED (Not Detect); Candida glab krusei PCR NOT DETECTED (Not Detect); Trichomonas vaginalis PCR NOT DETECTED (Not Detect)
[2024-11-10 13:39] LABS: CT PCR NOT DETECTED (Not Detect.); NG PCR NOT DETECTED (Not Detect.)
== END 2024-11-10 11:31 | disposition home or self-care (01) ==
LOC: HO.LNP 11:30
PROVIDERS: Visit Provider Advanced Practice Midwife
DX: Z11.3 Encounter for screening for infections with a predominantly sexual mode of transmission (principal); Z11.8 Encounter for screening for other infectious and parasitic diseases; R10.2 Pelvic and perineal pain
CPT/HCPCS: 81515; 87086; 87491; 87591

== ENCOUNTER 2024-12-15 09:48 | Outpatient (AMB) | payer OTHER, SELFPAY ==
--- NOTE | 2024-12-15 10:33 | MHC.OFFVIS ---
Vital Signs 12/15/24 10:38 Height 5 ft 3 in Weight 130 lb BMI 23.0 Intake Visit Reasons: pelvic pain Intake Note: Pelvic pain started friday and it is day but before that it has been on and off for a year. City Councilman Required: No City Councilman Services: City Councilman Offered & Declined Information Interpreted: non-clinical & clinical Manager Wireless: Manager Wireless Present (bryan) Accompanied by: Daughter Allergies No Known Allergies Allergy (Verified 12/15/24 10:34) Medication List - Last Reconciled 12/15/24 by Miley Pritchett LPN medroxyprogesterone (Depo-Provera) 150 mg IM [id number] 90 days Is last menstrual period known: No Post menopausal: No Patient : No Do you need a note to return to daycare/school/sports/work: No HPI Comments Details: Patient is here today with left sided pelvic pain radiating to the back since Friday. She thinks she may have had a fever on Friday, slept all day, thought about going to the ED, but did not. History of pelvic pain for one year. On Depo, no menses. Urine dip 3+Leuk. 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 Current occupational exposures/hazards: No Gender identity: Female Female Reproductive History Menstrual Age of Menarche: 13 Total pregnancies: 2 Number of Living Children: 2 History of abnormal pap smear: No Review of Systems Const All systems reviewed & are unremarkable except as noted in HPI and below Physical Exam Vital Signs: BMI result Body Mass Index 23.0 Const General: cooperative, healthy appearing and no acute distress Orientation/consciousness: patient oriented x3 GI Inspection: Yes normal to inspection Palpation (GI): Soft to palpation and Other GI palpation findings present (Nontender) Rectal Exam - Female: visual inspection normal General: Yes other (lower midline pelvic tenderness, no guarding) External Female Exam: normal appearance of the urethra Speculum Exam - Vagina: normal appearance of the vagina, normal palpation and normal vaginal discharge Speculum Exam - Cervix: normal appearance of the cervix and normal palpation Bimanual exam- vagina & uterus: normal bimanual exam, normal palpation, uterine size normal, normal palpation, uterine shape normal and non-tender Bimanual Exam- Adnexa, other: normal adnexae Neuro General: patient oriented x3 Results AMB Test Urine AMB Test Urine Negative Last Edit by Miley Pritchett LPN on 12/15/24 10:41 AMB Urinalysis, Automated UA Leukoctes 500 Alvarez/uL Last Edit by Miley Pritchett LPN on 12/15/24 10:45 UA Nitrite Last Edit by Miley Pritchett LPN on 12/15/24 10:45 UA Urobilinogen 17 mg/dL Last Edit by Miley Pritchett LPN on 12/15/24 10:45 UA Protein mg/dL Last Edit by Miley Pritchett LPN on 12/15/24 10:45 UA pH 6.5 Last Edit by Miley Pritchett LPN on 12/15/24 10:45 UA Blood Frankie/uL Last Edit by Miley Pritchett LPN on 12/15/24 10:45 UA Specific [place] 1.015 Last Edit by Miley Pritchett LPN on 12/15/24 10:45 UA Ketone Last Edit by Miley Pritchett LPN on 12/15/24 10:45 UA Bilirubin mg/dL Last Edit by Miley Pritchett LPN on 12/15/24 10:45 UA Glucose mg/dL Last Edit by Miley Pritchett LPN on 12/15/24 10:45 Results Reviewed Results Reviewed: Laboratory Last Values Urine pH (Auto) 6.5 12/15/24 10:40 Specific [place] (Auto) 1.015 12/15/24 10:40 Urine Urobilinogen (Auto) 17 mg/dL 12/15/24 10:40 Leukocyte Esterase (Auto) 500 Alvarez/uL 12/15/24 10:40 Tst Clinic Negative 12/15/24 10:40 Assessment & Plan Assessment & Plan (1) Pelvic pain: Code(s): R10.2 - Pelvic and perineal pain Category: Medical Plan GC chlamydia BV panel obtained, urine culture to be sent, await results for final plan of care. Macrobid Rx sent to pharmacy. Advised to hydrate well. Reviewed warnings including fever flu-like symptoms and when to go to the emergency room for any increased pain or signs of infection. Importance of completing all of her medication. Ultrasound ordered, plan follow up in person. We will follow up on our discussion for referral to [facility] for chronic pelvic pain after results are completed. The patient expressed understanding and agreement with the plan of care. All of her questions and concerns were addressed to the best of my ability. This note is constructed using voice recognition software. While every effort has been made to ensure accuracy, service delivery consultant errors may have been included. Orders: Orders US pelvic and transvaginal Today R10.2 - Pelvic and perineal pain CT NG by PCR Vag/Cerv Today R10.2 - Pelvic and perineal pain AMB Urinalysis Automated Today R10.2 - Pelvic and perineal pain AMB HCG Urine Test Today Z32.02 - Encounter for test, result negative Urine Culture Today R10.2 - Pelvic and perineal pain Bacterial Vaginosis Panel Today R10.2 - Pelvic and perineal pain Medications: New nitrofurantoin monohyd/m-cryst 100 mg (Macrobid) must administer with a meal/food 100 mg PO BID 10 caps 0RF UTI 5 days Coding Level of Care Code Est Pt Level 3 (27384) Diagnoses Pelvic pain R10.2
[2024-12-15 10:38] VITALS: BMI 23.0
--- OUTSIDE RECORDS SUMMARY | 2024-12-15 11:52 | XMS_ITS | Clinical Summary ---
Author Organization Patient Business [facility] Address [address] [place] [address] Care Team Providers Care Multi Mission Helicopter Aircrewman Name Role Phone Jose Miller MD Primary Care Provider [phone] Surgical History Surgery Date Site/Laterality Comments OTHER [...] Cancer Screening: P ap Smear 09/01/2022 09/02/2019 Depression Screening 03/24/2024 COVID-19 Vaccine (1 - 2023-2 5 season) 2024 Influenza Vaccine (#1) 2024 0, 01/02/2017 DTaP,Tdap,and [...] RESULTING AGENCY - 09/06/2019 10:51 AM EDT [id number] THINPREP PAP, IMAGED: NEGATIVE FOR SQUAMOUS INTRAEPITHELIAL [...] Recently Relevant to Health Maintenance Care Teams Multi Mission Helicopter Aircrewman Relationship Specialty Start Date End Date Jose Miller MD PCP - General Internal Medicine 05/30/21
== END 2024-12-15 11:14 | disposition home or self-care (01) ==
LOC: HO.HWS 09:48
PROVIDERS: Visit Provider Advanced Practice Midwife
DX: R10.2 Pelvic and perineal pain (principal); Z32.02 Encounter for pregnancy test, result negative
CPT/HCPCS: 99213

== ENCOUNTER 2024-12-15 09:48 | Outpatient (REF) | payer OTHER, SELFPAY ==
[2024-12-15 16:49] LABS: Bacterial Vaginosis PCR POSITIVE (Negative); Candida Group PCR NOT DETECTED (Not Detect); Candida glab krusei PCR NOT DETECTED (Not Detect); Trichomonas vaginalis PCR NOT DETECTED (Not Detect)
[2024-12-15 17:18] LABS: CT PCR NOT DETECTED (Not Detect.); NG PCR NOT DETECTED (Not Detect.)
== END 2024-12-15 09:49 | disposition home or self-care (01) ==
LOC: HO.LNP 09:48
PROVIDERS: Visit Provider Advanced Practice Midwife
DX: R10.2 Pelvic and perineal pain (principal); Z32.02 Encounter for pregnancy test, result negative; Z20.2 Contact with and (suspected) exposure to infections with a predominantly sexual mode of transmission; Z79.3 Long term (current) use of hormonal contraceptives
CPT/HCPCS: 81003; 81025; 81515; 87086; 87491; 87591; 99212

== ENCOUNTER 2024-12-15 11:42 | Outpatient (REF) | payer OTHER, SELFPAY ==
--- NOTE | ~2024-12-15 | US_ITS ---
EXAMINATION: US PELVIS TRANSABDOMINAL AND TRANSVAGINAL CLINICAL INFORMATION: R10.2 - Pelvic and perineal pain COMPARISON: Ultrasound on February 05, 2024 TECHNIQUE: Ultrasound of the pelvis is performed using both transabdominal and transvaginal transducers along with Doppler. Transvaginal imaging is performed due to inadequate visualization transabdominally. FINDINGS: Uterus: The uterus is anteverted and anteflexed and measures 9.1 x 2.6 x 5.3 cm (volume of 65.6 cc). Homogeneous myometrium. No focal lesions. The double wall endometrial thickness is 0.4 cm. Adnexa: Right ovary measures 2.4 x 1.5 x 1.7 cm (volume of 3.3 cc). Normal follicular appearance. Left ovary measures 2.2 x 1.3 x 1.1 cm (volume of 1.7 cc). Unremarkable. Pelvis: No free fluid. US/US pelvic and transvaginal IMPRESSION: No acute findings. Unremarkable sonographic appearance of the uterus and ovaries. Electronically signed by: Jennifer Gonzales MD 12/15/2024 12:45 PM EDT
== END 2024-12-15 11:43 | disposition home or self-care (01) ==
LOC: HO.HMGCX 11:42
PROVIDERS: Visit Provider Advanced Practice Midwife
DX: R10.2 Pelvic and perineal pain (principal)
CPT/HCPCS: 76830; 76856

== ENCOUNTER → 2024-12-15 11:46 | Outpatient (BNV) | payer OTHER, SELFPAY | PROVIDERS: Visit Provider Radiology Body Imaging | DX: R10.2 Pelvic and perineal pain (principal) | CPT/HCPCS: 76830; 76856 ==

== ENCOUNTER 2024-12-21 12:46 | Outpatient (AMB) | payer OTHER, SELFPAY ==
--- NOTE | 2024-12-21 13:02 | MHC.OFFVIS ---
Vital Signs 12/21/24 13:04 Height 5 ft 3 in Weight 130 lb BMI 23.0 Intake Visit Reasons: Stat U/S follow up Intake Note: review u/s done recently Locker Room Supervisor Required: Yes Locker Room Supervisor Services: Locker Room Supervisor Present (voice box) Information Interpreted: non-clinical & clinical Top Collar Maker: Top Collar Maker Present Accompanied by: Self / Same As Patient Allergies No Known Allergies Allergy (Verified 12/21/24 13:06) Medication List - Last Reconciled 12/21/24 by Miley Pritchett LPN medroxyprogesterone (Depo-Provera) 150 mg IM [id number] 90 days metronidazole 500 mg PO BID 7 days nitrofurantoin monohyd/m-cryst 100 mg (Macrobid) 100 mg PO BID 5 days Is last menstrual period known: No Do you need a note to return to daycare/school/sports/work: No HPI Comments Details: Patient is here today for a follow up pelvic ultrasound, due to history of chronic pelvic pain for over the last year. Currently treated for BV and yeast. Current Depo-Provera user. 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 Allergy/Adv: No Known Allergies [facility] [place] [address] Ultrasound Report Signed Patient: Vivi Almendarez MR#: [id number] : 1995 Acct:[id number] Age/Sex: 29 / F ADM Date: 12/15/24 Loc: HO.[facility]GCX Attending Dr: Della Yu CNM Ordering Physician: Della Yu CNM Date of Service: 12/15/24 Procedure(s): US pelvic and transvaginal Accession Number(s): [id number] cc: Della Yu CNM~ Reason for Exam: R10.2 - Pelvic and perineal pain EXAMINATION: US PELVIS TRANSABDOMINAL AND TRANSVAGINAL CLINICAL INFORMATION: R10.2 - Pelvic and perineal pain COMPARISON: Ultrasound on February 05, 2024 TECHNIQUE: Ultrasound of the pelvis is performed using both transabdominal and transvaginal transducers along with Doppler. Transvaginal imaging is performed due to inadequate visualization transabdominally. FINDINGS: Uterus: The uterus is anteverted and anteflexed and measures 9.1 x 2.6 x 5.3 cm (volume of 65.6 cc). Homogeneous myometrium. No focal lesions. The double wall endometrial thickness is 0.4 cm. Adnexa: Right ovary measures 2.4 x 1.5 x 1.7 cm (volume of 3.3 cc). Normal follicular appearance. Left ovary measures 2.2 x 1.3 x 1.1 cm (volume of 1.7 cc). Unremarkable. Pelvis: No free fluid. US/US pelvic and transvaginal IMPRESSION: No acute findings. Unremarkable sonographic appearance of the uterus and ovaries. Electronically signed by: Jennifer Gonzales MD 12/15/2024 12:45 PM EDT Dictated By: Jennifer Gonzales MD Signed By: <Electronically signed by Jennifer Gonzales MD in OV> 12/15/24 1245 DD/ 1150 TD/TT: 12/15/24 1203 Knitting Machine Fixer: Assessment & Plan Assessment & Plan (1) Chronic pelvic pain in female: Code(s): R10.2 - Pelvic and perineal pain; G89.29 - Other chronic pain Plan Discussed: Ultrasound findings- IMPRESSION: No acute findings. Unremarkable sonographic appearance of the uterus and ovaries. Discussed causes for chronic pelvic pain including endometriosis, accepts referral to [facility] for further evaluation. Referral placed. The patient expressed understanding and agreement with the plan of care. All of her questions and concerns were addressed to the best of my ability. This note is constructed using voice recognition software. While every effort has been made to ensure accuracy, dramatic arts historian errors may have been included. Orders: Referrals METAL PUNCH PRESS OPERATOR Referral G89.29 - Other chronic pain, R10.2 - Pelvic and perineal pain Coding Level of Care Code Est Pt Level 3 (06099) Diagnoses Chronic pelvic pain in female R10.2; G89.29
[2024-12-21 13:04] VITALS: BMI 23.0
--- OUTSIDE RECORDS SUMMARY | 2024-12-21 13:54 | XMS_ITS | Clinical Summary ---
Author Organization Patient Business [facility] Address [address] [place] [address] Care Team Providers Care Commercial Carpenter Name Role Phone Jose Miller MD Primary Care Provider [phone] Surgical History Surgery Date Site/Laterality Comments OTHER [...] - Td or Tdap) 12/28/2029 12/29/2019, 01/02/2017 RSV Immunization Adult Patients (1 - 1-dose 75+ series) 2069 HIB Vaccines Aged Out No longer eligi [...] RESULTING AGENCY - 09/06/2019 10:51 AM EDT [id number] THINPREP PAP, IMAGED: NEGATIVE FOR SQUAMOUS INTRAEPITHELIAL LESION AND MALIGNANCY . ELEONORA IS PRESENT. ANGELIKA LAWSON(ASCP) (CASE ELECTRONICALLY SIGNED 09 06 2019) ADEQUACY: SATISFACTORY ENDOCERVICAL/TRANSFORMATION ZONE COMPONENT PRESENT. SOURCE: THINPREP PAP HPV IF ASCUS, CERVICAL, IMAGED CLINICAL INFORMATION: HPV IF DIAGNOSIS OF ASCUS. , PAP HX NEG, LMP 3/20/20, Z12.4 us Zeinab Byers CNM LAB CYTOLOGY ORDERABLES Final R esult HISTORICAL TESTING LAB RESULTING AGENCY from Last 3 Months or Most Recently Relevant to Health Maintenance Care Teams Commercial Carpenter Relationship Specialty Start Date End Date Jose Miller MD PCP - General Internal Medicine 05/30/21
== END 2024-12-21 13:55 | disposition home or self-care (01) ==
LOC: HO.HWS 12:46
PROVIDERS: Visit Provider Advanced Practice Midwife
DX: R10.2 Pelvic and perineal pain (principal); G89.29 Other chronic pain
CPT/HCPCS: 99213

== ENCOUNTER → 2024-12-21 12:46 | Outpatient (BNVA) | payer OTHER, SELFPAY | PROVIDERS: Visit Provider Advanced Practice Midwife | DX: Z71.2 Person consulting for explanation of examination or test findings (principal); R10.2 Pelvic and perineal pain; G89.29 Other chronic pain | CPT/HCPCS: 99212 ==

== ENCOUNTER 2025-02-04 13:15 | Outpatient (AMB) | payer OTHER, SELFPAY ==
[2025-02-04 14:12] VITALS: BMI 23.0
--- NOTE | 2025-02-04 14:12 | AM.OFFVISNUR ---
Vital Signs 02/04/25 14:12 Height 5 ft 3 in Weight 130 lb BMI 23.0 Intake Visit Reasons: depo Allergies No Known Allergies Allergy (Verified 12/21/24 13:06) Nursing Note Patient here with medication for scheduled Depo injection. Patient had no concerns. Patient scheduled next depo injection in 12 weeks.(04/22/25-05/06/25) Office Procedures Depo Questionnaire If YES to any of the following questions, please consult a provider. Date of last injection: 11/10/24 Date of last menstrual period: 01/26/25 Date of last gynecology exam: 12/21/24 Menstrual pattern since last injection has been: Light Breast lumps or other breast changes?: No Changes in weight or appetite?: No Depression or changes in mood?: No Abnormal hair growth or loss?: No Skin problems (rash, acne, discoloration)?: No Pain at the injection site?: No Headaches?: Not Applicable Nervousness?: No Abdominal pain or cramping?: No Dizziness or nausea?: No Fatigue or weakness?: No Decrease in sexual drive?: No Chest pain or shortness of breath?: No Swelling in arms or legs?: No Form completed by?: Miley Pritchett LPN Office Meds Depo-Provera 150 mg/mL intramuscular syringe Performing Provider: Della Yu CNM Performing Location: [facility] Administered by: Miley Pritchett LPN on 02/04/25 14:12 Dose Route Admin Location Dispensed Lot Number Expiration Date [facility] [employer] 150 mg IM left deltoid 1 mL [id number] 03/22/27 53811-843-56 [facility] Total Dispensed Waste 1 mL 0 % Assessment & Plan Assessment & Plan Orders: Orders AMB Medroxyprogesterone Injection Patient Supplied Today Z30.42 - Encounter for surveillance of injectable contraceptive Coding Level of Care Code Established Pt Est Pt Level 1 (49064) Patient Type Established History Problem Focused Exam Problem Focused Medical Decision Making Straight Forward Time Spent (min) 20
--- OUTSIDE RECORDS SUMMARY | 2025-02-04 19:27 | XMS_ITS | Clinical Summary ---
Author Organization Patient Business [facility] Address [address] [place] [address] Care Team Providers Care Medical Practice Manager Name Role Phone Jose Miller MD Primary Care Provider [phone] Surgical History Surgery Date Site/Laterality Comments OTHER [...] RESULTING AGENCY - 09/06/2019 10:51 AM EDT [id number] THINPREP PAP, IMAGED: NEGATIVE FOR SQUAMOUS INTRAEPITHELIAL [...] Recently Relevant to Health Maintenance Care Teams Medical Practice Manager Relationship Specialty Start Date End Date Jose Miller MD PCP - General Internal Medicine 05/30/21
== END 2025-02-04 13:51 | disposition home or self-care (01) ==
LOC: HO.HWS 13:16
DX: Z30.42 Encounter for surveillance of injectable contraceptive (principal)

== ENCOUNTER → 2025-02-04 13:15 | Outpatient (BNVA) | payer OTHER, SELFPAY | DX: Z30.42 Encounter for surveillance of injectable contraceptive (principal) | CPT/HCPCS: 96372; 99211; J1050 ==